=== PATIENT | male | born 1980 | race Caucasian/White ===

== ENCOUNTER 2017-09-07 00:19 | Emergency (ER) | payer BC ==
[2017-09-07 00:29] VITALS: BP 127/90; PULSE 128; O2SAT 97
[2017-09-07] MEDS ORDERED: Zithromax 250 MG TABLET PO ONE (00:36)
[2017-09-07] MEDS ORDERED: NORCO 5/325 MG PO ONE (00:37)
[2017-09-07] MEDS ORDERED: NORCO 5/325 MG ONE (00:39)
[2017-09-07] MEDS ORDERED: Zithromax 250 MG TABLET ONE (00:39)
--- NOTE | 2017-09-07 00:43 | ERPHSYRPT ---
- History of Present Illness Time Seen by Provider: 09/07/17 00:25 Source: patient Exam Limitations: no limitations Patient Subjective Stated Complaint: Fever Triage Nursing Assessment: Pt presents to the ED with complaints of fever that began approximately 40 minutes ago. Pt states he went to sleep feeling tired but denies other complaints. Pt states temp of 101.3 before leaving home. Pt states flu + 2 weeks ago. Physician History: FOR THE PAST 40 MINUTES PT HAS HAD FATIGUE, GENERALIZED ACHES AND FEVER UP TO 101.3 DEGREES; DENIES RASH, NAUSEA, VOMITING, ABDOMINAL PAIN; ADMITS TO AN ACHY CHEST WHEN TAKING DEEP BREATHS. Allergies/Adverse Reactions: No Known Drug Allergies Allergy (Verified 10/05/15 21:13) Hx Tetanus, Diphtheria Vaccination/Date Given: Yes Hx Influenza Vaccination/Date Given: Yes Hx Pneumococcal Vaccination/Date Given: No Immunizations Up to Date: Yes - Review of Systems Constitutional: Fever, Fatigue Musculoskeletal: Arthralgias All Other Systems: Reviewed and Negative - Past Medical History Pertinent Past Medical History: Yes Neurological History: No Pertinent History ENT History: No Pertinent History Cardiac History: No Pertinent History Respiratory History: No Pertinent History Endocrine Medical History: No Pertinent History Musculoskeletal History: Other GI Medical History: GI Bleed, Hemorrhoids History: No Pertinent History Psycho-Social History: No Pertinent History Male Reproductive Disorders: No Pertinent History Other Medical History: chronic right shoulder pain - Past Surgical History Past Surgical History: Yes Neuro Surgical History: No Pertinent History Cardiac: No Pertinent History Respiratory: No Pertinent History Gastrointestinal: No Pertinent History Genitourinary: No Pertinent History Musculoskeletal: Orthopedic Surgery Male Surgical History: No Pertinent History Other Surgical History: r shoulder x 2 and r knee - Social History Smoking Status: Current every day smoker How long have you smoked: 20 years Exposure to second hand smoke: Yes Drug Use: none Patient Lives Alone: No - Nursing Vital Signs Nursing Vital Signs: Initial Vital Signs Temperature 99.7 F 09/07/17 00:24 Pulse Rate 128 H 09/07/17 00:24 Respiratory Rate 16 09/07/17 00:24 Blood Pressure 127/90 09/07/17 00:24 O2 Sat by Pulse Oximetry 97 09/07/17 00:24 Pain Scale Pain Intensity 0 - Physical Exam General Appearance: alert Eye Exam: PERRL/EOMI Ears, Nose, Throat Exam: TMs normal, moist mucous membranes, pharyngeal erythema Neck Exam: normal inspection Respiratory Exam: lungs clear Cardiovascular Exam: normal heart sounds Gastrointestinal/Abdomen Exam: soft, other (B.S. MILDLY HYPERACTIVE AND NORMOTONIC) Back Exam: normal range of motion Extremity Exam: normal inspection, No pedal edema Neurologic Exam: alert, cooperative Skin Exam: warm, dry SpO2 Interpretation: normal SpO2: 97 Oxygen Delivery: Room Air - Course Nursing assessment & vital signs reviewed: Yes - Departure Time of Disposition: 00:47 Departure Disposition: Home Clinical Impression: PHARYNGITIS Condition: Stable Critical Care Time: No Referrals: MIKE QUARLES [Primary Care Provider] - Instructions: Fever, Adult (DC) Additional Instructions: FOLLOW UP WITH PRIVATE DOCTOR TOMORROW. Prescriptions: Naproxen [Naprosyn] 500 mg PO Q12H PRN PRN #20 tablet PRN Reason: Pain And/Or Fever Azithromycin 250 mg [Zithromax 250 MG TABLET] 250 mg PO ZPACK #6 tablet
== END 2017-09-07 00:57 | disposition home or self-care (01) ==
LOC: ED 00:19
DX: J02.9 Acute pharyngitis, unspecified (principal)
CPT/HCPCS: 99283; A9270-GY

== ENCOUNTER 2018-03-24 00:09 | Emergency (ER) | payer BC ==
--- NOTE | 2018-03-24 00:40 | ERPHSYRPT ---
- History of Present Illness Time Seen by Provider: 03/24/18 00:30 Historian: patient Exam Limitations: no limitations Physician History: 38 y/o male comes to the ER with complaints of acute onset left flank pain that started this evening after he coughed. Pt describes the pain as sharp, constant , 8/10, with radiation across the abdomen and pt has not taken any pain meds. Pt denies any fever, chills, nausea, vomiting, constipation, diarrhea or urinary symptoms. Timing/Duration: today Activities at Onset: activity, sleep Quality: sharpness Abdominal Pain Onset Location: flank Pain Radiation: periumbilical Severity of Pain-Max: severe Severity of Pain-Current: severe Modifying Factors: Improves With: coughing Associated Symptoms: denies symptoms Previous symptoms: no prior history Allergies/Adverse Reactions: No Known Drug Allergies Allergy (Verified 03/24/18 00:42) Hx Tetanus, Diphtheria Vaccination/Date Given: Yes Hx Influenza Vaccination/Date Given: Yes Hx Pneumococcal Vaccination/Date Given: No - Review of Systems Constitutional: No Fever, No Chills Eyes: No Symptoms Ears, Nose, & Throat: No Symptoms Respiratory: No Cough, No Dyspnea Cardiac: No Chest Pain, No Edema, No Syncope Abdominal/Gastrointestinal: Abdominal Pain, No Nausea, No Vomiting, No Diarrhea Genitourinary Symptoms: Flank Pain, No Dysuria, No Frequency, No Hematuria, No Hesitancy Musculoskeletal: No Back Pain, No Neck Pain Skin: No Rash Neurological: No Dizziness, No Focal Weakness, No Sensory Changes Psychological: No Symptoms Endocrine: No Symptoms All Other Systems: Reviewed and Negative - Past Medical History Pertinent Past Medical History: Yes Neurological History: No Pertinent History ENT History: No Pertinent History Cardiac History: No Pertinent History Respiratory History: No Pertinent History Endocrine Medical History: No Pertinent History Musculoskeletal History: Other GI Medical History: GI Bleed, Hemorrhoids History: No Pertinent History Psycho-Social History: No Pertinent History Male Reproductive Disorders: No Pertinent History Other Medical History: chronic right shoulder pain - Past Surgical History Past Surgical History: Yes Neuro Surgical History: No Pertinent History Cardiac: No Pertinent History Respiratory: No Pertinent History Gastrointestinal: No Pertinent History Genitourinary: No Pertinent History Musculoskeletal: Orthopedic Surgery Male Surgical History: No Pertinent History Other Surgical History: r shoulder x 2 and r knee - Social History Smoking Status: Current every day smoker How long have you smoked: 20 years Exposure to second hand smoke: Yes Drug Use: none Patient Lives Alone: No - Nursing Vital Signs Nursing Vital Signs: Initial Vital Signs Temperature 98.3 F 03/24/18 00:34 Pulse Rate 114 H 03/24/18 00:34 Respiratory Rate 18 03/24/18 00:34 Blood Pressure 145/98 03/24/18 00:34 O2 Sat by Pulse Oximetry 97 03/24/18 00:34 Pain Scale Pain Intensity 8 - Physical Exam General Appearance: mild distress, alert Eye Exam: PERRL/EOMI, eyes nml inspection Ears, Nose, Throat Exam: normal ENT inspection, pharynx normal, moist mucous membranes Neck Exam: normal inspection, non-tender, supple, full range of motion Respiratory Exam: normal breath sounds, lungs clear, No respiratory distress Cardiovascular Exam: regular rate/rhythm, normal heart sounds Gastrointestinal/Abdomen Exam: soft, No tenderness, No mass Back Exam: normal inspection, normal range of motion, CVA tenderness, No vertebral tenderness Extremity Exam: normal inspection, normal range of motion, pelvis stable Neurologic Exam: alert, oriented x 3, cooperative, normal mood/affect, nml cerebellar function, sensation nml, No motor deficits Skin Exam: normal color, warm, dry - Course Nursing assessment & vital signs reviewed: Yes Ordered Tests: Active Orders 24 hr Category Date Time Status IV Insertion STAT Care 03/24/18 00:37 Active NPO (ED) STAT Care 03/24/18 00:37 Active ABDOMEN AND PELVIS W/0 CONTRAS [CT] Stat Exams 03/24/18 00:37 Taken AMYLASE Stat Lab 03/24/18 00:37 Completed CBC W DIFF Stat Lab 03/24/18 00:37 Completed CMP Stat Lab 03/24/18 00:37 Completed LIPASE Stat Lab 03/24/18 00:37 Completed UA W/ MICROSCOPIC Stat Lab 03/24/18 00:37 Completed Medication Summary Discontinued Medications Generic Name Dose Route Start Last Admin Trade Name Freq PRN Reason Stop Dose Admin Sodium Chloride 1,000 mls @ 999 mls/hr 03/24/18 00:37 03/24/18 01:00 Sodium Chloride 0.9% 1000 Ml IV 03/24/18 01:37 999 mls/hr .Q1H1M STA Administration Sodium Chloride Confirm 03/24/18 00:58 Sodium Chloride 0.9% 1000 Ml Administered 03/24/18 00:59 Dose 1,000 mls @ ud .ROUTE .STK-MED ONE Ketorolac Tromethamine 30 mg 03/24/18 00:37 03/24/18 01:05 Toradol 30 Mg Injection IV 03/24/18 00:38 30 mg STAT ONE Administration Ketorolac Tromethamine Confirm 03/24/18 00:58 Toradol 30 Mg Injection Administered 03/24/18 00:59 Dose 30 mg .ROUTE .STK-MED ONE Lab/Rad Data: Laboratory Result Diagrams 03/24/18 00:37 03/24/18 00:37 Laboratory Results 03/24/18 03/24/18 03/24/18 Range/Units 00:37 00:37 00:37 WBC 14.8 H (4.0-10.5) K/mm3 RBC 5.44 (4.1-5.6) M/mm3 Hgb 16.4 (12.5-18.0) gm/dl Hct 46.7 (42-50) % MCV 85.8 (78-100) fl MCH 30.1 (26-32) pg MCHC 35.1 (32-36) g/dl RDW 13.6 (11.5-14.0) % Plt Count 344 (150-450) K/mm3 MPV 9.7 H (6-9.5) fl Gran % 65.1 (36.0-66.0) % Eos # (Auto) 0.19 (0-0.5) Absolute Lymphs (auto) 3.93 (1.0-4.6) Absolute Monos (auto) 1.01 (0.0-1.3) Lymphocytes % 26.6 (24.0-44.0) % Monocytes % 6.8 (0.0-12.0) % Eosinophils % 1.3 (0.00-5.0) % Basophils % 0.2 (0.0-0.4) % Absolute Granulocytes 9.63 H (1.4-6.9) Basophils # 0.03 (0-0.4) Sodium 140 (137-145) mmol/L Potassium 3.6 (3.5-5.1) mmol/L Chloride 103 (98-107) mmol/L Carbon Dioxide 25 (22-30) mmol/L Anion Gap 15.1 H (5-15) MEQ/L BUN 13 (9-20) mg/dL Creatinine 0.77 (0.66-1.25) mg/dL Estimated GFR > 60.0 ML/MIN Glucose 113 H (74-106) mg/dL Calcium 9.6 (8.4-10.2) mg/dL Total Bilirubin 0.30 (0.2-1.3) mg/dL AST 17 (17-59) U/L ALT 25 (0-50) U/L Alkaline Phosphatase 70 (38-126) U/L Serum Total Protein 8.1 (6.3-8.2) g/dL Albumin 4.8 (3.5-5.0) g/dL Amylase 53 (30-110) U/L Lipase 123 (23-300) U/L Ur Collection Type VOID Urine Color YELLOW (YELLOW) Urine Appearance CLEAR (CLEAR) Urine pH 5.0 (5-6) Ur Specific [place] 1.025 (1.005-1.025) Urine Protein NEGATIVE (Negative) Urine Ketones NEGATIVE (NEGATIVE) Urine Blood NEGATIVE (0-5) Joss/ul Urine Nitrite NEGATIVE (NEGATIVE) Urine Bilirubin NEGATIVE (NEGATIVE) Urine Urobilinogen NORMAL (0-1) mg/dL Ur Leukocyte Esterase TRACE (NEGATIVE) Urine Microscopic WBC 2-5 (0-5) /HPF Ur Epithelial Cells RARE (FEW) /HPF Urine Culture Reflexed NO (NO) Urine Glucose NEGATIVE (NEGATIVE) mg/dL Specimen Received [id number] - Progress Progress: improved Progress Note: 03/24/18 02:[address] scan abd/pelvis does not show any acute findings. The labs are unremarkable. The patient likely has a muscle pull and will be sent home on toradol. - Departure Time of Disposition: 02:57 Departure Disposition: Home Clinical Impression: Pulled muscle Condition: Stable Critical Care Time: No Referrals: MIKE QUARLES [Primary Care Provider] - Instructions: Flank Pain Additional Instructions: Return to the ER if you should continue to have muscle pain. Prescriptions: Ketorolac Tromethamine [Toradol] 10 mg PO QID PRN #20 tablet PRN Reason: Pain
[2018-03-24] MEDS ORDERED: Sodium Chloride 0.9% 1000 ML 1,000 ML ONE (00:58)
[2018-03-24] MEDS ORDERED: TORAdol 30 mg Injection ONE (00:58)
[2018-03-24] MEDS: Sodium Chloride 0.9% 1000 ML 1,000 ML IV STA (01:00)
[2018-03-24] MEDS: TORAdol 30 mg Injection IV ONE (01:05)
[2018-03-24 01:29] LABS: BASOPHIL % 0.2 % (0.0-0.4); Basophil (Absolute #) 0.03 (0-0.4); Eosinophil % 1.3 % (0.00-5.0); Eosinophil (Absolute #) 0.19 (0-0.5); Granulocyte Absolute (ANC) 9.63 (1.4-6.9); Granulocytes % 65.1 % (36.0-66.0); Hematocrit 46.7 % (42-50); Hemoglobin 16.4 gm/dl (12.5-18.0); Lymphocyte (Absolute #) 3.93 (1.0-4.6); Lymphocytes % 26.6 % (24.0-44.0); Mean Cell Volume 85.8 fl (78-100); Mean Corpuscular Hemoglobin 30.1 pg (26-32); Mean Corpuscular Hgb Concent. 35.1 g/dl (32-36); Mean Platelet Volume 9.7 fl (6-9.5); Monocyte (Absolute #) 1.01 (0.0-1.3); Monocytes % 6.8 % (0.0-12.0); Platelet Count 344 K/mm3 (150-450); Red Blood Count 5.44 M/mm3 (4.1-5.6); Red Cell Distribution Width 13.6 % (11.5-14.0); White Blood Count 14.8 K/mm3 (4.0-10.5)
[2018-03-24 01:41] LABS: Appearance CLEAR (CLEAR); Bilirubin NEGATIVE (NEGATIVE); Blood NEGATIVE Ery/ul (0-5); Glucose NEGATIVE (NEGATIVE); Ketones NEGATIVE (NEGATIVE); Leukocyte Esterase TRACE (NEGATIVE); Nitrite NEGATIVE (NEGATIVE); Protein,Urine Dip NEGATIVE (Negative); Specific Gravity 1.025 (1.005-1.025); Urobilinogen NORMAL mg/dL (0-1)
[2018-03-24 01:42] LABS: Epithelial Cells RARE /HPF (FEW)
[2018-03-24 01:49] LABS: ALBUMIN 4.8 g/dL (3.5-5.0); ALKALINE PHOSPHATASE 70 U/L (38-126); AMYLASE 53 U/L (30-110); ANION GAP 15.1 MEQ/L (5-15); BLOOD UREA NITROGEN 13 mg/dL (9-20); CHLORIDE 103 mmol/L (98-107); Calcium 9.6 mg/dL (8.4-10.2); Carbon Dioxide 25 mmol/L (22-30); Creatinine 1 0.77 mg/dL (0.66-1.25); Glucose 113 mg/dL (74-106); LIPASE 123 U/L (23-300); Potassium 3.6 mmol/L (3.5-5.1); SGOT/AST 17 U/L (17-59); SGPT/ALT 25 U/L (0-50); SODIUM 140 mmol/L (137-145); Total Protein 8.1 g/dL (6.3-8.2)
[2018-03-24 02:51] VITALS: PULSE 84
[2018-03-24 03:14] VITALS: BP 123/73; O2SAT 97
--- NOTE | 2018-03-24 08:52 | XRAY ---
Indication: Left flank pain. Multiple contiguous axial images obtained through the abdomen and pelvis without contrast as ordered. Comparison: October 22, 2013. Lung bases are clear. Heart is not enlarged. Noncontrasted stomach and bowel loops appear nonobstructed. Normal appendix. No free fluid/air. Mild diffuse fatty liver. Remaining liver, gallbladder, pancreas, spleen, adrenal glands, kidneys, ureters, bladder, and aorta appear unremarkable for noncontrast exam. Osseous structures intact with mild L5-S1 degenerative disc disease and bilateral L5 spondylolysis without spondylolisthesis. No ventral or inguinal hernias. Impression: 1. No acute intra-abdominal/pelvic abnormalities on this noncontrast exam. 2. Incidental fatty liver, L5-S1 degenerative disc disease, and L5 spondylolysis without spondylolisthesis. Comment: Preliminary interpretation was made by [facility]. No critical discrepancy. CT DI 23.49
== END 2018-03-24 03:10 | disposition home or self-care (01) ==
LOC: ED 00:09
DX: S39.011A Strain of muscle, fascia and tendon of abdomen, initial encounter (principal); R10.33 Periumbilical pain; R05 Cough; Z72.0 Tobacco use
CPT/HCPCS: 36000; 36415; 74176; 80053; 81000; 82150; 83690; 85025; 96360; 96374; 99284; J1885

== ENCOUNTER 2018-06-21 05:35 | Day surgery (SDC) | payer BC ==
[2018-06-21] MEDS ORDERED: DIPRIVAN 200 MG/20 ML IV ONE (05:36)
[2018-06-21] MEDS ORDERED: Lactated Ringers 1,000 ML IV SCH (06:00)
--- NOTE | 2018-06-21 08:50 | OP ---
SURGERY DATE/TIME: 06/21/2018 0758 PREOPERATIVE DIAGNOSIS: Rectal bleeding. POSTOPERATIVE DIAGNOSES: 1) External hemorrhoids. 2) Polyp in the transverse colon. PROCEDURE: Colonoscopy with polypectomy. SURGEON: Dr. Borges. ANESTHESIA: MAC. Medications given by anesthesia department. HISTORY: The patient is a 38 year-old white male patient presenting now for rectal bleeding. The patient was felt to need to have endoscopic evaluation. He was appraised of the risks of the procedure including the risk of perforation, phlebitis, untoward reaction to medication, bleeding and missed lesions. The patient verbalized his understanding and desired to have the procedure performed. DESCRIPTION OF PROCEDURE: The patient was given the medications by the anesthesia department. He had continuous pulse oximetry, ECG monitoring, intermittent blood pressure monitoring and tidal CO2 monitoring during the examination. He was placed in the left lateral decubitus position. A digital rectal examination was performed and revealed external hemorrhoids with no bleeding, no fissure, no masses, normal anal sphincter tone and normal prostate. The flexible Olympus pediatric colonoscope was used to intubate the rectum. A view of the colon was developed sequentially to the cecum including a short distance into the terminal ileum. Upon insertion and withdrawal, including a retroflex view in the rectum was noted benign appearing polyp measuring approximately 2 x 1 cm sessile in the transverse colon at a flexure this was destroyed using multiple passes with cold biopsy forceps. Upon insertion and withdrawal including retroflex view in the rectum no other mucosal lesions were encountered. The scope was removed from the patient who tolerated the procedure well and was sent back to OP recovery in good condition. The prep was noted to be fair to good.
[2018-06-21 09:19] VITALS: BP 125/74; PULSE 78; O2SAT 97
== END 2018-06-21 09:15 | disposition home or self-care (01) ==
LOC: SDC 05:35
PROVIDERS: ATTEND Family Medicine
DX: K62.5 Hemorrhage of anus and rectum (principal); K64.4 Residual hemorrhoidal skin tags; K63.5 Polyp of colon
CPT/HCPCS: 88305; 94250; J2704

== ENCOUNTER 2019-07-08 03:37 | Emergency (ER) | payer BC ==
[2019-07-08] MEDS ORDERED: TYLENOL EXTRA STRENGTH 500 MG PO STA (04:06)
[2019-07-08] MEDS ORDERED: MOTRIN 600 MG PO ONE (04:07)
--- NOTE | 2019-07-08 04:16 | ERPHSYRPT ---
- History of Present Illness Time Seen by Provider: 07/08/19 03:55 Source: patient Exam Limitations: no limitations Patient Subjective Stated Complaint: pt states he has had aches and chills at home and some congestion Triage Nursing Assessment: pt alert and oriented, answers questions approp. pt amulatory with steady gait noted. respirations nonlabored with lungs cta. Physician History: Patient had sudden onset of fever, chills, myalgias and congestion in the evening of 07/07/2019. Timing/Duration: hour(s) Fever Severity: severe Fever Therapy ATTIC BLOWER: none Associated Symptoms: cough, muscle aches, rhinorrhea, No abdominal pain, No chest pain, No confusion, No diaphoresis, No headache, No nausea/vomiting, No rash, No shortness of breath, No sore throat, No stiff neck, No syncope, No weakness International travel in last 2 weeks: No Allergies/Adverse Reactions: oseltamivir [From Tamiflu] Adverse Reaction (Verified 07/08/19 04:13) Vomiting Home Medications: Atorvastatin Calcium 10 mg PO 07/08/19 [History] Tizanidine HCl 4 mg [Zanaflex 4 MG] 4 mg PO Q8H PRN PRN 07/08/19 [History] Hx Tetanus, Diphtheria Vaccination/Date Given: Yes Hx Influenza Vaccination/Date Given: No Hx Pneumococcal Vaccination/Date Given: No Immunizations Up to Date: Yes - Review of Systems Constitutional: Fever, Chills, Fatigue Eyes: No Eye Pain, No Vision Changes Ears, Nose, & Throat: Nose Congestion, Nose Discharge, No Throat Pain, No Throat Swelling, No Painful Swallowing Respiratory: Cough, No Dyspnea Cardiac: No Chest Pain, No Edema, No Syncope Abdominal/Gastrointestinal: No Abdominal Pain, No Nausea, No Vomiting, No Diarrhea, No Hematemesis, No Hematochezia, No Melena Genitourinary Symptoms: No Dysuria, No Hematuria, No Flank Pain Musculoskeletal: Myalgias, No Back Pain, No Neck Pain, No Joint Pain Skin: No Rash Neurological: No Dizziness, No Focal Weakness, No Headache, No Parasthesia, No Sensory Changes Psychological: No Anxiety Endocrine: No Excessive Sweating Hematologic/Lymphatic: No Easy Bleeding, No Easy Bruising All Other Systems: Reviewed and Negative - Past Medical History Pertinent Past Medical History: Yes Neurological History: No Pertinent History ENT History: No Pertinent History Cardiac History: No Pertinent History Respiratory History: No Pertinent History Endocrine Medical History: No Pertinent History Musculoskeletal History: Other GI Medical History: GI Bleed, Hemorrhoids History: No Pertinent History Psycho-Social History: No Pertinent History Male Reproductive Disorders: No Pertinent History Other Medical History: chronic right shoulder pain - Past Surgical History Past Surgical History: Yes Neuro Surgical History: No Pertinent History Cardiac: No Pertinent History Respiratory: No Pertinent History Gastrointestinal: No Pertinent History Genitourinary: No Pertinent History Musculoskeletal: Orthopedic Surgery Male Surgical History: No Pertinent History Other Surgical History: r shoulder x 2 and r knee - Social History Smoking Status: Current every day smoker How long have you smoked: 20 years Exposure to second hand smoke: Yes Drug Use: none Patient Lives Alone: No - Nursing Vital Signs Nursing Vital Signs: Initial Vital Signs Temperature 103.0 F 07/08/19 03:59 Pulse Rate 110 H 07/08/19 03:59 Respiratory Rate 18 07/08/19 03:59 Blood Pressure 112/70 07/08/19 03:59 O2 Sat by Pulse Oximetry 96 07/08/19 03:59 Pain Scale Pain Intensity 5 - Physical Exam General Appearance: no apparent distress, alert Eye Exam: PERRL/EOMI, eyes nml inspection, No scleral icterus, No pale conjunctivae ENT Exam: normal ENT inspection, no apparent trauma, hearing grossly normal, nasal congestion, No pharyngeal erythema, No tonsillar exudate, No trismus, No muffled/hoarse voice Neck Exam: normal inspection, non-tender, supple, full range of motion, trachea midline, No lymphadenopathy (R), No lymphadenopathy (L), No tender lateral, No Brudzinski's sign, No meningismus Respiratory Exam: normal breath sounds, lungs clear, no respiratory distress, No decreased breath sounds, No respiratory distress, No decreased air movement, No accessory muscle use, No crackles/rales, No rhonchi, No stridor, No wheezing Cardiovascular/Chest Exam: normal heart sounds, regular rate/rhythm, normal peripheral pulses, No murmur, No edema Gastrointestinal/Abdominal Exam: soft, non tender, no distention Extremity Exam: non-tender, normal range of motion, normal inspection, normal capillary refill, pelvis stable, No pedal edema, No swelling Neurologic Exam: alert, oriented x 3, cooperative, fuel technician II-XII nml as tested, normal mood/affect, sensation nml, No motor deficits Skin Exam: normal color, warm, dry, No rash, No jaundice, No cyanosis SpO2 Interpretation: normal SpO2: 96 O2 Delivery: Room Air - Course Nursing assessment & vital signs reviewed: Yes Ordered Tests: Medication Summary Discontinued Medications Generic Name Dose Route Start Last Admin Trade Name Lexi PRN Reason Stop Dose Admin Acetaminophen 1,000 mg 07/08/19 04:06 07/08/19 04:27 Tylenol Extra Strength 500 Mg PO 07/08/19 04:07 1,000 mg STAT STA Administration Acetaminophen Confirm 07/08/19 04:25 Tylenol 325 Mg Administered 07/08/19 04:26 Dose 650 mg .ROUTE .STK-MED ONE Acetaminophen Confirm 07/08/19 04:27 Tylenol Extra Strength 500 Mg Administered 07/08/19 04:28 Dose 1,000 mg .ROUTE .STK-MED ONE Ibuprofen 600 mg 07/08/19 04:07 07/08/19 04:26 Motrin 600 Mg PO 07/08/19 04:08 600 mg STAT ONE Administration Ibuprofen Confirm 07/08/19 04:24 Motrin 600 Mg Administered 07/08/19 04:25 Dose 600 mg .ROUTE .STK-MED ONE Lab/Rad Data: Laboratory Results 07/08/19 Range/Units 05:00 Influenza Type A Ag POSITIVE (NEGATIVE) Influenza Type B Ag NEGATIVE (NEGATIVE) RSV (PCR) NEGATIVE (Negative) - Progress Progress: improved Progress Note: 07/08/19 06:00 temperature and pulse have significantly improved after medication. Patient does not require inpatient treatment at this time and can be treated as an outpatient since he has no respiratory distress, does not require any oxygen support and can take oral intake. Counseled pt/family regarding: lab results, diagnosis, need for follow-up - Departure Departure Disposition: Home Clinical Impression: Influenza A Condition: Good Critical Care Time: No Referrals: MIKE QUARLES [Primary Care Provider] - Follow Up with PCP/3 days Instructions: Flu, Adult (DC), Fever, Adult (DC) Additional Instructions: You have Influenza A, which is very contagious. Avoid any very young children, elderly people, people with heart and lung problems or any immunocompromised people for the next week. Return immediately back into the emergency department if any change in mental status, shortness of breath, productive cough , poor intake, any new skin rashes or any other concerning signs or symptoms that were not present at the emergency room visit for immediate reevaluation in the emergency department. Forms: Work/School Release Form Prescriptions: Ibuprofen 800 mg PO Q6H PRN PRN #30 tablet PRN Reason: Fever Baloxavir Marboxil [Xofluza] 80 mg PO DAILY #2 tablet Promethazine/Dextromethorphan [Promethazine-Dm Solution] 5 ml PO Q6-8HPRN PRN # 90 ml PRN Reason: Cough
[2019-07-08] MEDS ORDERED: MOTRIN 600 MG ONE (04:24)
[2019-07-08] MEDS ORDERED: TYLENOL 325 MG ONE (04:25)
[2019-07-08] MEDS ORDERED: TYLENOL EXTRA STRENGTH 500 MG ONE (04:27)
[2019-07-08 05:46] LABS: INFLUENZA A POSITIVE (NEGATIVE); INFLUENZA B NEGATIVE (NEGATIVE); RESPIRATORY SYNCTIAL VIRUS NEGATIVE (Negative)
[2019-07-08 06:01] VITALS: BP 102/70; PULSE 104
[2019-07-08 06:03] VITALS: O2SAT 96
== END 2019-07-08 06:14 | disposition home or self-care (01) ==
LOC: ED 03:37
DX: J11.1 Influenza due to unidentified influenza virus with other respiratory manifestations (principal)
CPT/HCPCS: 87631; 99283; A9270-GY

== ENCOUNTER 2020-03-12 05:50 | Day surgery (SDC) | payer BC ==
[2020-03-12] MEDS ORDERED: Lactated Ringers 1,000 ML IV SCH (06:30)
[2020-03-12] MEDS ORDERED: DIPRIVAN 200 MG/20 ML IV ONE ×2 (07:36→07:49)
[2020-03-12 08:44] VITALS: O2SAT 95
[2020-03-12 08:57] VITALS: BP 115/77; PULSE 79
--- NOTE | 2020-03-12 13:00 | OP ---
SURGERY DATE/TIME: 03/12/2020 0735 PREOPERATIVE DIAGNOSES: 1) History of colon polyps. 2) History of rectal bleeding. POSTOPERATIVE DIAGNOSIS: Normal colon. PROCEDURE: Colonoscopy. SURGEON: Dr. Borges. ANESTHESIA: MAC. Medications given by anesthesia department. HISTORY: The patient is a 40 year old white male patient who reports that he has been having problems with intermittent rectal bleeding. He also reports history of having colon polyps removed previously. The patient was felt the need to have endoscopic evaluation. He was appraised of the risks of the procedure including the risk of perforation, phlebitis, untoward reaction to medication, bleeding and missed lesions. The patient verbalized his understanding and desired to have the procedure performed. DESCRIPTION OF PROCEDURE: The patient was given the medications by the anesthesia department. He had continuous pulse oximetry, ECG monitoring, intermittent blood pressure monitoring and tidal CO2 monitoring during the examination. He was placed in the left lateral decubitus position. A digital rectal examination was performed and revealed normal anal sphincter tone, no masses and normal prostate. The flexible Olympus pediatric colonoscope was used to intubate the rectum. A view of the colon was developed sequentially to the cecum including a short distance into the terminal ileum. Upon insertion and withdrawal, including a retroflex view in the rectum, no mucosal lesions were encountered. The scope was removed from the patient who tolerated the procedure well and was sent back to OP recovery in good condition. The prep was noted to be fair to good with slight amount of liquid stool throughout the colon.
== END 2020-03-12 08:58 | disposition home or self-care (01) ==
LOC: SDC 05:50
PROVIDERS: ATTEND Family Medicine
DX: Z09 Encounter for follow-up examination after completed treatment for conditions other than malignant neoplasm (principal); I10 Essential (primary) hypertension; Z79.899 Other long term (current) drug therapy
CPT/HCPCS: J2704

== ENCOUNTER 2020-11-21 21:41 | Observation (INO) | payer BC ==
[2020-11-21 22:33] LABS: Absolute Neutrophil Ct (ANC) 8.87 (1.4-6.9); BASOPHIL % 0.2 % (0.0-0.4); Basophil (Absolute #) 0.02 (0-0.4); Eosinophil % 1.4 % (0.00-5.0); Eosinophil (Absolute #) 0.17 (0-0.5); Hematocrit 45.9 % (42-50); Hemoglobin 15.3 gm/dl (12.5-18.0); Lymphocyte (Absolute #) 2.77 (1.0-4.6); Mean Cell Volume 88.4 fl (78-100); Mean Corpuscular Hemoglobin 29.5 pg (26-32); Mean Corpuscular Hgb Concent. 33.3 g/dl (32-36); Monocyte (Absolute #) 0.74 (0.0-1.3); Monocytes % 5.9 % (0.0-12.0); Neutrophil % 70.5 % (36.0-66.0); Platelet Count 287 K/mm3 (150-450); Red Blood Count 5.19 M/mm3 (4.1-5.6); Red Cell Distribution Width 13.9 % (11.5-14.0); White Blood Count 12.6 K/mm3 (4.0-10.5)
[2020-11-21 22:38] LABS: INR 0.97 (0.8-3.0)
[2020-11-21 22:40] LABS: PTT 31.9 SECONDS (24.1-36.1)
[2020-11-21 22:43] LABS: ALBUMIN 4.5 g/dL (3.5-5.0); ALKALINE PHOSPHATASE 75 U/L (38-126); ANION GAP 12.1 MEQ/L (5-15); BLOOD UREA NITROGEN 15 mg/dL (9-20); CHLORIDE 100 mmol/L (98-107); Calcium 9.6 mg/dL (8.4-10.2); Carbon Dioxide 29 mmol/L (22-30); Creatinine 1 0.84 mg/dL (0.66-1.25); EST GLOMERULAR FILTRATION RATE > 60.0 ML/MIN; Glucose 106 mg/dL (74-106); Potassium 3.9 mmol/L (3.5-5.1); SGOT/AST 17 U/L (17-59); SGPT/ALT 21 U/L (0-50); SODIUM 137 mmol/L (137-145); Total Protein 7.4 g/dL (6.3-8.2)
--- NOTE | 2020-11-21 22:44 | ERPHSYRPT ---
- History of Present Illness Time Seen by Provider: 11/21/20 21:57 Source: patient Exam Limitations: no limitations Patient Subjective Stated Complaint: pt states while watching tv he began to have spinning vison in his rt eye. states it stopped while he was on his way her e. denies any trauma to eye or head. denies headdache. Triage Nursing Assessment: pt alert and oriented, answers questions approp. pt ambulatoryw ith steady gait noted. respirations nonlabored with lungs cta. skin warm and dry. pupils equal and reactive, bilat upper and lower ext strength equal and wnl. Physician History: 40 years old generally healthy male presented in the ER with chief complaint of visual disturbance in the right eye sudden onset almost half an hour prior to arrival while he was watching TV. Patient report upper in the lateral aspect of the eye he was having some spinning/waving without any associated eye pain or headache. Denies any recent eye injury or trauma. It improved on the way to the ER and currently back to his baseline. Timing/Duration: today, sudden, improved Severity: moderate Character of Deficits: other (visual disturbance ) Deficits: no difficulties Baseline/Normal Cognition: alert oriented x 3 Current Cognition: alert oriented x 3 Baseline Gait: walks w/o assistance Associated Symptoms: denies symptoms Allergies/Adverse Reactions: oseltamivir [From Tamiflu] Adverse Reaction (Verified 11/22/20 00:00) Vomiting Home Medications: Atorvastatin Calcium [Lipitor 20MG Tablet] 20 mg PO HS 03/06/20 [History] Fluticasone Propionate [Flonase NASAL] 16 gm NS DAILY PRN PRN 03/06/20 [History] Loratadine 10 mg [Claritin 10 mg] 10 mg PO HS 03/06/20 [History] Zolpidem Tartrate 10 mg [Ambien 10 MG] 10 mg PO HSPRN PRN 03/06/20 [History] Varenicline Tartrate [Chantix] 1 mg PO BID 11/21/20 [History] Hx Tetanus, Diphtheria Vaccination/Date Given: Yes Hx Influenza Vaccination/Date Given: No Hx Pneumococcal Vaccination/Date Given: No Immunizations Up to Date: Yes Travel Risk - International Travel Have you traveled outside of the country in past 3 weeks: No - Coronavirus Screening Are you exhibiting any of the following symptoms?: No Close contact with a COVID-19 positive Pt in past 14-21 Days: No - Vaccine Status Have you recieved a Covid-19 vaccination: Yes 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 - Vaccination Dates Date of 2cond Vaccination (if applicable): sep 21 - Review of Systems Constitutional: No Symptoms Eyes: Vision Changes, No Eye Pain, No Eye Redness, No Itchy Ears, Nose, & Throat: No Symptoms Respiratory: No Symptoms Cardiac: No Symptoms Abdominal/Gastrointestinal: No Symptoms Genitourinary Symptoms: No Symptoms Musculoskeletal: No Symptoms Skin: No Symptoms Neurological: No Symptoms Psychological: No Symptoms Endocrine: No Symptoms Hematologic/Lymphatic: No Symptoms Immunological/Allergic: No Symptoms - Past Medical History Pertinent Past Medical History: Yes Neurological History: No Pertinent History ENT History: No Pertinent History Cardiac History: High Cholesterol Respiratory History: Sleep Apnea Endocrine Medical History: No Pertinent History Musculoskeletal History: Other GI Medical History: GI Bleed, Hemorrhoids History: No Pertinent History Psycho-Social History: No Pertinent History Male Reproductive Disorders: No Pertinent History Other Medical History: chronic right shoulder pain. shortness of breath with excessive work. 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 had bone scraped after "a pc of steel got in it" - Social History Smoking Status: Current every day smoker How long have you smoked: 29 years Exposure to second hand smoke: Yes Drug Use: none Patient Lives Alone: No - Nursing Vital Signs Nursing Vital Signs: Initial Vital Signs Temperature 98.6 F 11/21/20 21:49 Pulse Rate 87 11/21/20 21:49 Respiratory Rate 18 11/21/20 21:49 Blood Pressure 138/99 11/21/20 21:49 O2 Sat by Pulse Oximetry 100 11/21/20 21:49 Pain Scale Pain Intensity 0 - [place] Coma Scale Best Eye Response ([place]): (4) open spontaneously Best Verbal Response ([place]): (5) oriented Best Motor Response ([place]): (6) obeys commands [place] Total: 15 - Physical Exam General Appearance: no apparent distress, alert Eye Exam: bilateral eye: normal inspection, PERRL, EOMI Ears, Nose, Throat Exam: normal ENT inspection, TMs normal, pharynx normal Neck Exam: normal inspection, non-tender, supple, full range of motion Respiratory: normal breath sounds, lungs clear Cardiovascular: regular rate/rhythm, normal heart sounds Gastrointestinal: soft Back Exam: normal inspection, normal range of motion Extremity Exam: normal inspection, normal range of motion Mental Status: alert, oriented x 3, 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 Exam: normal hearing, normal speech, PERRL, No abnormal eye position Coordination/Gait: normal finger to nose, normal gait, normal cerebellar function, negative Romberg's sign Motor/Sensory: no motor deficit, no sensory deficit, no pronator drift, negative Babinski's sign Skin Exam: normal color SpO2 Interpretation: normal SpO2: 100 O2 Delivery: Room Air - Course EKG Interpreted by Me: RATE (78), Sinus Rhythm, NORMAL AXIS, NORMAL INTERVALS, NORMAL QRS Ordered Tests: Medication Summary Discontinued Medications Generic Name Dose Route Start Last Admin Trade Name Freq PRN Reason Stop Dose Admin Acetaminophen 650 mg 11/22/20 02:32 Tylenol 325 Mg PO 12/22/20 02:31 Q4H PRN PRN PAIN AND/OR FEVER Aspirin 324 mg 11/22/20 00:46 11/22/20 00:56 Baby Aspirin 81 Mg Chew PO 11/22/20 00:47 324 mg STAT ONE Administration Aspirin Confirm 11/22/20 00:57 Baby Aspirin 81 Mg Chew Administered 11/22/20 00:58 Dose 324 mg .ROUTE .STK-MED ONE Clopidogrel Bisulfate 75 mg 11/22/20 00:46 11/22/20 00:57 Plavix 75 Mg Tablet PO 11/22/20 00:47 75 mg STAT ONE Administration Clopidogrel Bisulfate Confirm 11/22/20 00:57 Plavix 75 Mg Tablet Administered 11/22/20 00:58 Dose 75 mg .ROUTE .STK-MED ONE Famotidine 20 mg 11/22/20 10:00 11/22/20 12:46 Pepcid 20 Mg Vial IV 12/22/20 09:59 Not Given Q12HT CORY Fluticasone Propionate 0 gm 11/22/20 09:28 Flonase Nasal NS 12/22/20 09:27 DAILY PRN PRN ALLERGIES Loratadine 10 mg 11/22/20 22:00 Claritin 10 Mg PO 12/22/20 21:59 HS [facility] Miscellaneous Information 1 each 11/22/20 09:45 Medication Intervention 12/22/20 09:44 .RN TO CHECK WITH PT [facility] Ondansetron HCl 4 mg 11/22/20 02:32 Zofran 4 Mg/2 Ml Vial IV 12/22/20 02:31 Q6H PRN PRN NAUSEA/VOMITING Simvastatin 20 mg 11/22/20 22:00 Zocor 20mg PO 12/22/20 21:59 HS [facility] Zolpidem Tartrate 10 mg 11/22/20 09:28 Ambien 10 Mg PO 12/22/20 09:27 HSPRN PRN INSOMNIA Lab/Rad Data: Laboratory Result [facility] 11/21/20 22:25 11/21/20 22:25 Laboratory Results 11/22/20 11/21/20 11/21/20 Range/Units 01:15 22:25 22:25 WBC (4.0-10.5) K/mm3 RBC (4.1-5.6) M/mm3 Hgb (12.5-18.0) gm/dl Hct (42-50) % MCV (78-100) fl MCH (26-32) pg MCHC (32-36) g/dl RDW (11.5-14.0) % Plt Count (150-450) K/mm3 MPV (7.5-11.0) fl Gran % (36.0-66.0) % Eos # (Auto) (0-0.5) Absolute Lymphs (auto) (1.0-4.6) Absolute Monos (auto) (0.0-1.3) Lymphocytes % (24.0-44.0) % Monocytes % (0.0-12.0) % Eosinophils % (0.00-5.0) % Basophils % (0.0-0.4) % Absolute Granulocytes (1.4-6.9) Basophils # (0-0.4) PT 11.0 (8.83-12.87) SECONDS INR 0.97 (0.8-3.0) APTT 31.9 (24.1-36.1) SECONDS Sodium 137 (137-145) mmol/L Potassium 3.9 (3.5-5.1) mmol/L Chloride 100 (98-107) mmol/L Carbon Dioxide 29 (22-30) mmol/L Anion Gap 12.1 (5-15) MEQ/L BUN 15 (9-20) mg/dL Creatinine 0.84 (0.66-1.25) mg/dL Estimated GFR > 60.0 ML/MIN Glucose 106 (74-106) mg/dL Calcium 9.6 (8.4-10.2) mg/dL Total Bilirubin 0.20 (0.2-1.3) mg/dL AST 17 (17-59) U/L ALT 21 (0-50) U/L Alkaline Phosphatase 75 (38-126) U/L Serum Total Protein 7.4 (6.3-8.2) g/dL Albumin 4.5 (3.5-5.0) g/dL Influenza Type A Ag NEGATIVE (NEGATIVE) Influenza Type B Ag NEGATIVE (NEGATIVE) RSV (PCR) NEGATIVE (Negative) SARS-CoV-2 (PCR) NEGATIVE (NEGATIVE) 11/21/20 Range/Units 22:25 WBC 12.6 H (4.0-10.5) K/mm3 RBC 5.19 (4.1-5.6) M/mm3 Hgb 15.3 (12.5-18.0) gm/dl Hct 45.9 (42-50) % MCV 88.4 (78-100) fl MCH 29.5 (26-32) pg MCHC 33.3 (32-36) g/dl RDW 13.9 (11.5-14.0) % Plt Count 287 (150-450) K/mm3 MPV 9.0 (7.5-11.0) fl Gran % 70.5 H (36.0-66.0) % Eos # (Auto) 0.17 (0-0.5) Absolute Lymphs (auto) 2.77 (1.0-4.6) Absolute Monos (auto) 0.74 (0.0-1.3) Lymphocytes % 22.0 L (24.0-44.0) % Monocytes % 5.9 (0.0-12.0) % Eosinophils % 1.4 (0.00-5.0) % Basophils % 0.2 (0.0-0.4) % Absolute Granulocytes 8.87 H (1.4-6.9) Basophils # 0.02 (0-0.4) PT (8.83-12.87) SECONDS INR (0.8-3.0) APTT (24.1-36.1) SECONDS Sodium (137-145) mmol/L Potassium (3.5-5.1) mmol/L Chloride (98-107) mmol/L Carbon Dioxide (22-30) mmol/L Anion Gap (5-15) MEQ/L BUN (9-20) mg/dL Creatinine (0.66-1.25) mg/dL Estimated GFR ML/MIN Glucose (74-106) mg/dL Calcium (8.4-10.2) mg/dL Total Bilirubin (0.2-1.3) mg/dL AST (17-59) U/L ALT (0-50) U/L Alkaline Phosphatase (38-126) U/L Serum Total Protein (6.3-8.2) g/dL Albumin (3.5-5.0) g/dL Influenza Type A Ag (NEGATIVE) Influenza Type B Ag (NEGATIVE) RSV (PCR) (Negative) SARS-CoV-2 (PCR) (NEGATIVE) - Progress Progress: improved, re-examined Progress Note: 11/22/20 00:43 Patient's visual disturbance/swirling feeling is improved on presentation in the ER. Nonfocal neuro exam otherwise. I have obtained CT head without contrast and CTA head neck which are negative. Work-up is grossly negative. Obtained ne uro consult who thinks patient probably have optical migraine aura but could be TIA and recommended TIA work-up. Discussed with Dr. Anderson and patient is being admitted for TIA work-up like MRI, echo with bubble study, lipid panel, A1c along with full dose aspirin and Plavix 75 mg now etc. 11/22/20 00:48 Discussed with : Lai Will see patient in: hospital (observation) Counseled pt/family regarding: lab results, diagnosis, rad results - Departure Departure Disposition: Observation Clinical Impression: Visual disturbance Condition: Stable Critical Care Time: No
[2020-11-22] MEDS ORDERED: BABY ASPIRIN 81 MG CHEW PO ONE (00:46)
[2020-11-22] MEDS ORDERED: PLAVIX 75 MG Tablet PO ONE (00:46)
[2020-11-22] MEDS ORDERED: BABY ASPIRIN 81 MG CHEW ONE (00:57)
[2020-11-22] MEDS ORDERED: PLAVIX 75 MG Tablet ONE (00:57)
[2020-11-22 02:01] LABS: INFLUENZA A NEGATIVE (NEGATIVE); INFLUENZA B NEGATIVE (NEGATIVE); RESPIRATORY SYNCTIAL VIRUS NEGATIVE (Negative)
[2020-11-22] MEDS ORDERED: TYLENOL 325 MG PO PRN (02:32)
[2020-11-22] MEDS ORDERED: Zofran 4 MG/2 ML VIAL IV PRN (02:32)
[2020-11-22 05:51] LABS: Absolute Neutrophil Ct (ANC) 8.14 (1.4-6.9); BASOPHIL % 0.2 % (0.0-0.4); Basophil (Absolute #) 0.03 (0-0.4); Eosinophil % 1.8 % (0.00-5.0); Eosinophil (Absolute #) 0.22 (0-0.5); Hematocrit 46.8 % (42-50); Hemoglobin 15.5 gm/dl (12.5-18.0); Lymphocyte (Absolute #) 3.16 (1.0-4.6); Lymphocytes % 25.8 % (24.0-44.0); Mean Cell Volume 88.6 fl (78-100); Mean Corpuscular Hemoglobin 29.4 pg (26-32); Mean Corpuscular Hgb Concent. 33.1 g/dl (32-36); Mean Platelet Volume 9.3 fl (7.5-11.0); Monocyte (Absolute #) 0.72 (0.0-1.3); Monocytes % 5.9 % (0.0-12.0); Neutrophil % 66.3 % (36.0-66.0); Platelet Count 294 K/mm3 (150-450); Red Blood Count 5.28 M/mm3 (4.1-5.6); White Blood Count 12.3 K/mm3 (4.0-10.5)
[2020-11-22 06:15] LABS: ALBUMIN 4.3 g/dL (3.5-5.0); ALKALINE PHOSPHATASE 78 U/L (38-126); BLOOD UREA NITROGEN 13 mg/dL (9-20); CHLORIDE 104 mmol/L (98-107); Calcium 9.3 mg/dL (8.4-10.2); Carbon Dioxide 25 mmol/L (22-30); Creatinine 1 0.75 mg/dL (0.66-1.25); EST GLOMERULAR FILTRATION RATE > 60.0 ML/MIN; Glucose 94 mg/dL (74-106); SGOT/AST 17 U/L (17-59); SGPT/ALT 19 U/L (0-50); SODIUM 138 mmol/L (137-145); Total Protein 7.3 g/dL (6.3-8.2)
[2020-11-22 06:24] LABS: Risk Ratio 4.2
--- NOTE | 2020-11-22 08:38 | XRAY ---
Indication: Right visual disturbance. Conventional contrast enhanced CTA neck performed using 80 cc Isovue 370 contrast. Two-dimensional sagittal and coronal reformatted images obtained. Additional 3-dimensional reformatted images obtained using a separate workstation. Comparison: None Aortic arch normal in course and caliber with normal branching right brachiocephalic, left common carotid, and left subclavian arteries. Normal CTA appearance to the common carotid, carotid bulb, internal carotid, external carotid, and vertebral arteries bilaterally. CTA head report separately. Visualized soft tissues demonstrates scattered centimeter/subcentimeter cervical and submandibular lymph nodes bilaterally. No pathologic lymphadenopathy. Parotid and submandibular glands are bilaterally symmetric. Supra and infraglottic airway widely patent. Normal epiglottis. Osseous structures intact. Lung apices demonstrates bilateral dependent atelectasis. Impression: Normal CTA neck. Comment: Preliminary interpretation was made by [facility]. No critical discrepancy.
--- NOTE | 2020-11-22 08:42 | XRAY ---
Indication: Right visual disturbance. Conventional contrast enhanced CTA head performed prior to and following 80 cc Isovue 370 contrast. Two-dimensional sagittal and coronal reformatted images obtained. Additional 3-dimensional reformatted images obtained using a separate workstation. Comparison: None CTA neck report separately. Noncontrasted images of the head demonstrates normal appearing brain parenchyma, ventricles, and bony calvarium. Orbits are bilaterally symmetric. Visualized paranasal sinuses and mastoid air cells are clear. Normal CTA appearance of the internal carotid, carotid terminus, anterior cerebral, middle cerebral, basilar, posterior cerebral, and superior cerebellar arteries bilaterally. There is no abnormal enhancing intra or extra-axial mass. Visualized paranasal sinuses and mastoid air cells are clear. Impression: Normal CT head without contrast and normal CTA head exams. Comment: Preliminary interpretation was made by [facility]. No critical discrepancy.
--- NOTE | 2020-11-22 09:05 | PCM.HP ---
History of Present Illness - Chief Complaint Chief Complaint: r/o History of Present Illness: is a 40 year old male who developed sudden onset of visual disturbance in right eye yesterday, lasted around 20 minutes and felt like he was looking through a kaleidoscope. no headache ,no numbness, tingling, weakness or paresthesias. No slurred speech or confusion, has no prior history of similar incidence, no prior history of vascular disease, has high cholesterol and on chantix to quit smoking. he denies frequent headaches or migraines. - Review of Systems Constitutional: No Fever, No Chills Eyes: Vision Changes Respiratory: No Cough, No Short Of Breath Cardiac: No Chest Pain, No Edema, No Syncope Abdominal/Gastrointestinal: No Abdominal Pain, No Nausea, No Vomiting, No Diarrhea Genitourinary Symptoms: No Dysuria Neurological: No Focal Weakness, No Gait Changes, No Headache, No Seizure, No Sensory Changes, No Speech Changes Psychological: No Alcohol Abuse, No Drug Abuse All Other Systems: Reviewed and Negative Medications & Allergies Home Medications: Home Medication List Atorvastatin Calcium [Lipitor 20MG Tablet] 20 mg PO HS 03/06/20 [History Confirmed 11/21/20] Fluticasone Propionate [Flonase NASAL] 16 gm NS DAILY PRN PRN 03/06/20 [History Confirmed 11/21/20] Loratadine 10 mg [Claritin 10 mg] 10 mg PO HS 03/06/20 [History Confirmed 11/21/20] Zolpidem Tartrate 10 mg [Ambien 10 MG] 10 mg PO HSPRN PRN 03/06/20 [History Confirmed 11/21/20] Varenicline Tartrate [Chantix] 1 mg PO BID 11/21/20 [History Confirmed 11/21/20] Allergies/Adverse Reactions: Allergies Allergy/AdvReac Type Severity Reaction Status Date / Time oseltamivir [From Tamiflu] AdvReac Vomiting Verified 11/22/20 00:00 - Past Medical History Past Medical History: Yes Neurological History: No Pertinent History ENT History: No Pertinent History Cardiac History: High Cholesterol Respiratory History: Sleep Apnea Endocrine Medical History: No Pertinent History Musculoskelatal History: Other GI Medical History: GI Bleed, Hemorrhoids History: No Pertinent History Pyscho-Social History: No Pertinent History Male Reproductive Disorders: No Pertinent History Comment: chronic right shoulder pain. shortness of breath with excessive work. 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 had bone scraped after "a pc of steel got in it" - Social History Smoking Status: Current every day smoker How long have you smoked: 29 Exposure to second hand smoke: Yes Alcohol: Rarely Drug Use: none - Physical Exam Vital Signs: Vital Signs - 24 hr Temp Pulse Resp BP Pulse Ox 11/22/20 08:00 82 F 82 10 L 120/76 93 L 11/22/20 03:37 97 F 78 18 98 11/22/20 02:54 97.7 F 76 18 115/69 95 11/22/20 01:12 80 16 117/75 98 11/22/20 00:56 100 11/22/20 00:05 80 16 117/76 96 11/21/20 23:23 81 16 127/82 97 11/21/20 21:49 98.6 F 87 18 138/99 100 General Appearance: no apparent distress, alert Neurologic Exam: alert, oriented x 3, 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, 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, normal mood/affect, nml cerebellar function, nml station & gait, sensation nml, No motor deficits Respiratory Exam: normal breath sounds, lungs clear, No respiratory distress Cardiovascular Exam: regular rate/rhythm, normal heart sounds, normal peripheral pulses Gastrointestinal/Abdomen Exam: soft, normal bowel sounds, No tenderness, No mass Extremity Exam: normal inspection, normal range of motion, pelvis stable Skin Exam: normal color, warm, dry, No rash Results - Labs Lab/Micro Results: Lab Results-Last 24 Hours 11/21/20 11/21/20 11/21/20 Range/Units 22:25 22:25 22:25 WBC 12.6 H (4.0-10.5) K/mm3 RBC 5.19 (4.1-5.6) M/mm3 Hgb 15.3 (12.5-18.0) gm/dl Hct 45.9 (42-50) % MCV 88.4 (78-100) fl MCH 29.5 (26-32) pg MCHC 33.3 (32-36) g/dl RDW 13.9 (11.5-14.0) % Plt Count 287 (150-450) K/mm3 MPV 9.0 (7.5-11.0) fl Gran % 70.5 H (36.0-66.0) % Eos # (Auto) 0.17 (0-0.5) Absolute Lymphs (auto) 2.77 (1.0-4.6) Absolute Monos (auto) 0.74 (0.0-1.3) Lymphocytes % 22.0 L (24.0-44.0) % Monocytes % 5.9 (0.0-12.0) % Eosinophils % 1.4 (0.00-5.0) % Basophils % 0.2 (0.0-0.4) % Absolute Granulocytes 8.87 H (1.4-6.9) Basophils # 0.02 (0-0.4) PT 11.0 (8.83-12.87) SECONDS INR 0.97 (0.8-3.0) APTT 31.9 (24.1-36.1) SECONDS Sodium 137 (137-145) mmol/L Potassium 3.9 (3.5-5.1) mmol/L Chloride 100 (98-107) mmol/L Carbon Dioxide 29 (22-30) mmol/L Anion Gap 12.1 (5-15) MEQ/L BUN 15 (9-20) mg/dL Creatinine 0.84 (0.66-1.25) mg/dL Estimated GFR > 60.0 ML/MIN Glucose 106 (74-106) mg/dL Hemoglobin A1c (4.5-6.0) % Calcium 9.6 (8.4-10.2) mg/dL Total Bilirubin 0.20 (0.2-1.3) mg/dL AST 17 (17-59) U/L ALT 21 (0-50) U/L Alkaline Phosphatase 75 (38-126) U/L Serum Total Protein 7.4 (6.3-8.2) g/dL Albumin 4.5 (3.5-5.0) g/dL Triglycerides (30-150) mg/dL Cholesterol (50-200) mg/dL LDL Cholesterol (30-100) mg/dL HDL Cholesterol (40-60) mg/dL Heart Disease Risk Ratio Influenza Type A Ag (NEGATIVE) Influenza Type B Ag (NEGATIVE) RSV (PCR) (Negative) SARS-CoV-2 (PCR) (NEGATIVE) 11/22/20 11/22/20 11/22/20 Range/Units 01:15 04:43 04:43 WBC 12.3 H (4.0-10.5) K/mm3 RBC 5.28 (4.1-5.6) M/mm3 Hgb 15.5 (12.5-18.0) gm/dl Hct 46.8 (42-50) % MCV 88.6 (78-100) fl MCH 29.4 (26-32) pg MCHC 33.1 (32-36) g/dl RDW 14.0 (11.5-14.0) % Plt Count 294 (150-450) K/mm3 MPV 9.3 (7.5-11.0) fl Gran % 66.3 H (36.0-66.0) % Eos # (Auto) 0.22 (0-0.5) Absolute Lymphs (auto) 3.16 (1.0-4.6) Absolute Monos (auto) 0.72 (0.0-1.3) Lymphocytes % 25.8 (24.0-44.0) % Monocytes % 5.9 (0.0-12.0) % Eosinophils % 1.8 (0.00-5.0) % Basophils % 0.2 (0.0-0.4) % Absolute Granulocytes 8.14 H (1.4-6.9) Basophils # 0.03 (0-0.4) PT (8.83-12.87) SECONDS INR (0.8-3.0) APTT (24.1-36.1) SECONDS Sodium 138 (137-145) mmol/L Potassium 4.0 (3.5-5.1) mmol/L Chloride 104 (98-107) mmol/L Carbon Dioxide 25 (22-30) mmol/L Anion Gap 13.0 (5-15) MEQ/L BUN 13 (9-20) mg/dL Creatinine 0.75 (0.66-1.25) mg/dL Estimated GFR > 60.0 ML/MIN Glucose 94 (74-106) mg/dL Hemoglobin A1c (4.5-6.0) % Calcium 9.3 (8.4-10.2) mg/dL Total Bilirubin 0.30 (0.2-1.3) mg/dL AST 17 (17-59) U/L ALT 19 (0-50) U/L Alkaline Phosphatase 78 (38-126) U/L Serum Total Protein 7.3 (6.3-8.2) g/dL Albumin 4.3 (3.5-5.0) g/dL Triglycerides (30-150) mg/dL Cholesterol (50-200) mg/dL LDL Cholesterol (30-100) mg/dL HDL Cholesterol (40-60) mg/dL Heart Disease Risk Ratio Influenza Type A Ag NEGATIVE (NEGATIVE) Influenza Type B Ag NEGATIVE (NEGATIVE) RSV (PCR) NEGATIVE (Negative) SARS-CoV-2 (PCR) NEGATIVE (NEGATIVE) 11/22/20 11/22/20 Range/Units 04:43 04:43 WBC (4.0-10.5) K/mm3 RBC (4.1-5.6) M/mm3 Hgb (12.5-18.0) gm/dl Hct (42-50) % MCV (78-100) fl MCH (26-32) pg MCHC (32-36) g/dl RDW (11.5-14.0) % Plt Count (150-450) K/mm3 MPV (7.5-11.0) fl Gran % (36.0-66.0) % Eos # (Auto) (0-0.5) Absolute Lymphs (auto) (1.0-4.6) Absolute Monos (auto) (0.0-1.3) Lymphocytes % (24.0-44.0) % Monocytes % (0.0-12.0) % Eosinophils % (0.00-5.0) % Basophils % (0.0-0.4) % Absolute Granulocytes (1.4-6.9) Basophils # (0-0.4) PT (8.83-12.87) SECONDS INR (0.8-3.0) APTT (24.1-36.1) SECONDS Sodium (137-145) mmol/L Potassium (3.5-5.1) mmol/L Chloride (98-107) mmol/L Carbon Dioxide (22-30) mmol/L Anion Gap (5-15) MEQ/L BUN (9-20) mg/dL Creatinine (0.66-1.25) mg/dL Estimated GFR ML/MIN Glucose (74-106) mg/dL Hemoglobin A1c 5.52 (4.5-6.0) % Calcium (8.4-10.2) mg/dL Total Bilirubin (0.2-1.3) mg/dL AST (17-59) U/L ALT (0-50) U/L Alkaline Phosphatase (38-126) U/L Serum Total Protein (6.3-8.2) g/dL Albumin (3.5-5.0) g/dL Triglycerides 183 H (30-150) mg/dL Cholesterol 159 (50-200) mg/dL LDL Cholesterol 94 (30-100) mg/dL HDL Cholesterol 38 L (40-60) mg/dL Heart Disease Risk Ratio 4.2 Influenza Type A Ag (NEGATIVE) Influenza Type B Ag (NEGATIVE) RSV (PCR) (Negative) SARS-CoV-2 (PCR) (NEGATIVE) - Radiology Impressions Radiology Exams & Impressions: Radiology Procedures Category Date Time Status CT ANGIOGRAPHY NECK [CT] Stat Exams 11/21/20 22:11 Completed CTA HEAD W AND/OR WO CONTRAST [CT] Stat Exams 11/21/20 22:10 Completed ECHO W/2D AND DOPPLER [US] Routine Exams 11/22/20 Ordered MRI BRAIN W/O CONTRAST [MRI] Routine Exams 11/22/20 05:58 Ordered - Other Procedures and Tests Respiratory Therapy 11/22/20 03:34 BiPap/CPAP ROUTINE Assessment/Plan (1) Visual disturbance Current Visit: Yes Status: Acute Assessment & Plan: MRI and echo ordered to evaluate for TIA vs CVA, ocular migraine also in differential. advised if workup negative should have ophthalmology evaluation after discharge Code(s): H53.9 - UNSPECIFIED VISUAL DISTURBANCE (2) Hyperlipidemia Current Visit: Yes Status: Acute Assessment & Plan: continue statin therapy Code(s): E78.5 - HYPERLIPIDEMIA, UNSPECIFIED
[2020-11-22] MEDS ORDERED: Flonase NASAL NS PRN (09:28)
[2020-11-22] MEDS ORDERED: Ambien 10 MG PO PRN (09:28)
[2020-11-22] MEDS ORDERED: MEDICATION INTERVENTION MC SCH (09:45)
[2020-11-22] MEDS ORDERED: NON-FORMULARY ITEM (Varenicline Tartrate [Chantix] 1 MG) PO SCH (10:00)
[2020-11-22] MEDS ORDERED: Pepcid 20 MG VIAL IV SCH (10:00)
--- NOTE | 2020-11-22 11:21 | XRAY ---
Indication: Right visual disturbance. Sagittal, coronal, and axial MRI brain was performed without contrast using T1, T2, FLAIR, diffusion, and ADC sequences. Comparison: None Ventriculosulcal pattern appears symmetric. No acute intracranial hemorrhage, abnormal extra-axial fluid collection, or mass effect. Diffusion images are negative for restricted signal. Fourth ventricle is midline without hydrocephalus. 7/8 cranial nerve complex bilaterally symmetric. Normal flow void signal within the major intracerebral circulation. Normal craniocervical junction and sella turcica. Visualized paranasal sinuses are clear. Impression: Negative MRI brain without contrast exam.
[2020-11-22 13:45] VITALS: BP 120/58; PULSE 76
--- NOTE | 2020-11-22 13:50 | PCM.DS ---
Discharge Summary Date of Admission: 11/22/20 02:20 Admitting Physician: MIKE QUARLES Consults: Consults on Case 11/22/20 00:04 Consult Tele-Health [Tele-Health Consult] ROUTINE Primary Care Provider: MIKE QUARLES Allergies Allergies oseltamivir [From Tamiflu] Adverse Reaction (Verified 11/22/20 00:00) Vomiting Hospital Summary - Hospital Course Hospital Course: patient arrived with complaint of visual disturbance, resolved within 20 minutes. no numbness, tingling, weakness or paresthesias. he has no complaints and insistent on going home today, impatient to wait on MRI and results. he has had no neuro complaints since admission - Vitals & Intake/Output Vital Signs: Vital Signs Temperature 97.2 F 11/22/20 12:00 Pulse Rate 76 11/22/20 12:00 Respiratory Rate 16 11/22/20 12:00 Blood Pressure 120/58 11/22/20 12:00 O2 Sat by Pulse Oximetry 96 11/22/20 12:00 Intake & Output: Intake & Output 11/20/20 11/21/20 11/22/20 11/23/20 11:59 11:59 11:59 11:59 Intake Total 120 240 Balance 120 240 Weight 97.1 kg - Lab Result Diagrams: 11/22/20 04:43 11/22/20 04:43 Lab Results-Last 24 Hrs: Lab Results-Last 24 Hours 11/21/20 11/21/20 11/21/20 Range/Units 22:25 22:25 22:25 WBC 12.6 H (4.0-10.5) K/mm3 RBC 5.19 (4.1-5.6) M/mm3 Hgb 15.3 (12.5-18.0) gm/dl Hct 45.9 (42-50) % MCV 88.4 (78-100) fl MCH 29.5 (26-32) pg MCHC 33.3 (32-36) g/dl RDW 13.9 (11.5-14.0) % Plt Count 287 (150-450) K/mm3 MPV 9.0 (7.5-11.0) fl Gran % 70.5 H (36.0-66.0) % Eos # (Auto) 0.17 (0-0.5) Absolute Lymphs (auto) 2.77 (1.0-4.6) Absolute Monos (auto) 0.74 (0.0-1.3) Lymphocytes % 22.0 L (24.0-44.0) % Monocytes % 5.9 (0.0-12.0) % Eosinophils % 1.4 (0.00-5.0) % Basophils % 0.2 (0.0-0.4) % Absolute Granulocytes 8.87 H (1.4-6.9) Basophils # 0.02 (0-0.4) PT 11.0 (8.83-12.87) SECONDS INR 0.97 (0.8-3.0) APTT 31.9 (24.1-36.1) SECONDS Sodium 137 (137-145) mmol/L Potassium 3.9 (3.5-5.1) mmol/L Chloride 100 (98-107) mmol/L Carbon Dioxide 29 (22-30) mmol/L Anion Gap 12.1 (5-15) MEQ/L BUN 15 (9-20) mg/dL Creatinine 0.84 (0.66-1.25) mg/dL Estimated GFR > 60.0 ML/MIN Glucose 106 (74-106) mg/dL Hemoglobin A1c (4.5-6.0) % Calcium 9.6 (8.4-10.2) mg/dL Total Bilirubin 0.20 (0.2-1.3) mg/dL AST 17 (17-59) U/L ALT 21 (0-50) U/L Alkaline Phosphatase 75 (38-126) U/L Serum Total Protein 7.4 (6.3-8.2) g/dL Albumin 4.5 (3.5-5.0) g/dL Triglycerides (30-150) mg/dL Cholesterol (50-200) mg/dL LDL Cholesterol (30-100) mg/dL HDL Cholesterol (40-60) mg/dL Heart Disease Risk Ratio Influenza Type A Ag (NEGATIVE) Influenza Type B Ag (NEGATIVE) RSV (PCR) (Negative) SARS-CoV-2 (PCR) (NEGATIVE) 11/22/20 11/22/20 11/22/20 Range/Units 01:15 04:43 04:43 WBC 12.3 H (4.0-10.5) K/mm3 RBC 5.28 (4.1-5.6) M/mm3 Hgb 15.5 (12.5-18.0) gm/dl Hct 46.8 (42-50) % MCV 88.6 (78-100) fl MCH 29.4 (26-32) pg MCHC 33.1 (32-36) g/dl RDW 14.0 (11.5-14.0) % Plt Count 294 (150-450) K/mm3 MPV 9.3 (7.5-11.0) fl Gran % 66.3 H (36.0-66.0) % Eos # (Auto) 0.22 (0-0.5) Absolute Lymphs (auto) 3.16 (1.0-4.6) Absolute Monos (auto) 0.72 (0.0-1.3) Lymphocytes % 25.8 (24.0-44.0) % Monocytes % 5.9 (0.0-12.0) % Eosinophils % 1.8 (0.00-5.0) % Basophils % 0.2 (0.0-0.4) % Absolute Granulocytes 8.14 H (1.4-6.9) Basophils # 0.03 (0-0.4) PT (8.83-12.87) SECONDS INR (0.8-3.0) APTT (24.1-36.1) SECONDS Sodium 138 (137-145) mmol/L Potassium 4.0 (3.5-5.1) mmol/L Chloride 104 (98-107) mmol/L Carbon Dioxide 25 (22-30) mmol/L Anion Gap 13.0 (5-15) MEQ/L BUN 13 (9-20) mg/dL Creatinine 0.75 (0.66-1.25) mg/dL Estimated GFR > 60.0 ML/MIN Glucose 94 (74-106) mg/dL Hemoglobin A1c (4.5-6.0) % Calcium 9.3 (8.4-10.2) mg/dL Total Bilirubin 0.30 (0.2-1.3) mg/dL AST 17 (17-59) U/L ALT 19 (0-50) U/L Alkaline Phosphatase 78 (38-126) U/L Serum Total Protein 7.3 (6.3-8.2) g/dL Albumin 4.3 (3.5-5.0) g/dL Triglycerides (30-150) mg/dL Cholesterol (50-200) mg/dL LDL Cholesterol (30-100) mg/dL HDL Cholesterol (40-60) mg/dL Heart Disease Risk Ratio Influenza Type A Ag NEGATIVE (NEGATIVE) Influenza Type B Ag NEGATIVE (NEGATIVE) RSV (PCR) NEGATIVE (Negative) SARS-CoV-2 (PCR) NEGATIVE (NEGATIVE) 11/22/20 11/22/20 Range/Units 04:43 04:43 WBC (4.0-10.5) K/mm3 RBC (4.1-5.6) M/mm3 Hgb (12.5-18.0) gm/dl Hct (42-50) % MCV (78-100) fl MCH (26-32) pg MCHC (32-36) g/dl RDW (11.5-14.0) % Plt Count (150-450) K/mm3 MPV (7.5-11.0) fl Gran % (36.0-66.0) % Eos # (Auto) (0-0.5) Absolute Lymphs (auto) (1.0-4.6) Absolute Monos (auto) (0.0-1.3) Lymphocytes % (24.0-44.0) % Monocytes % (0.0-12.0) % Eosinophils % (0.00-5.0) % Basophils % (0.0-0.4) % Absolute Granulocytes (1.4-6.9) Basophils # (0-0.4) PT (8.83-12.87) SECONDS INR (0.8-3.0) APTT (24.1-36.1) SECONDS Sodium (137-145) mmol/L Potassium (3.5-5.1) mmol/L Chloride (98-107) mmol/L Carbon Dioxide (22-30) mmol/L Anion Gap (5-15) MEQ/L BUN (9-20) mg/dL Creatinine (0.66-1.25) mg/dL Estimated GFR ML/MIN Glucose (74-106) mg/dL Hemoglobin A1c 5.52 (4.5-6.0) % Calcium (8.4-10.2) mg/dL Total Bilirubin (0.2-1.3) mg/dL AST (17-59) U/L ALT (0-50) U/L Alkaline Phosphatase (38-126) U/L Serum Total Protein (6.3-8.2) g/dL Albumin (3.5-5.0) g/dL Triglycerides 183 H (30-150) mg/dL Cholesterol 159 (50-200) mg/dL LDL Cholesterol 94 (30-100) mg/dL HDL Cholesterol 38 L (40-60) mg/dL Heart Disease Risk Ratio 4.2 Influenza Type A Ag (NEGATIVE) Influenza Type B Ag (NEGATIVE) RSV (PCR) (Negative) SARS-CoV-2 (PCR) (NEGATIVE) - Radiology Exams Ordered Rad Exams-Entire Visit: Radiology Procedures Category Date Time Status CT ANGIOGRAPHY NECK [CT] Stat Exams 11/21/20 22:11 Completed CTA HEAD W AND/OR WO CONTRAST [CT] Stat Exams 11/21/20 22:10 Completed ECHO W/2D AND DOPPLER [US] Routine Exams 11/22/20 Ordered MRI BRAIN W/O CONTRAST [MRI] Routine Exams 11/22/20 05:58 Completed - Procedures and Test Procedures and Tests throughout Hospitalization: Therapy Orders & Screens 11/22/20 03:34 BiPap/CPAP ROUTINE Comment: Diagnosis: r/o Discharge Exam General Appearance: no apparent distress, alert Neurologic Exam: alert, oriented x 3, cooperative, normal mood/affect, nml cerebellar function, sensation nml, No motor deficits Respiratory Exam: normal breath sounds, lungs clear, No respiratory distress Cardiovascular Exam: regular rate/rhythm, normal heart sounds Gastrointestinal/Abdomen Exam: soft, No tenderness, No mass Final Diagnosis/Problem List - Final Discharge Diagnosis/Problem (1) Visual disturbance Current Visit: Yes Status: Acute Assessment & Plan: MRI negative rules out TIA/CVA, normal exam. advised ophthalmology f/u as outpatient. echo is pending at the time of discharge Code(s): H53.9 - UNSPECIFIED VISUAL DISTURBANCE (2) Hyperlipidemia Current Visit: Yes Status: Acute Code(s): E78.5 - HYPERLIPIDEMIA, UNSPECIFIED - Discharge Disposition: Home, Self-Care Condition: Stable Prescriptions: Continue Loratadine 10 mg [Claritin 10 mg] 10 mg PO HS Fluticasone Propionate [Flonase NASAL] 16 gm NS DAILY PRN PRN PRN Reason: Allergies Atorvastatin Calcium [Lipitor 20MG Tablet] 20 mg PO HS Zolpidem Tartrate 10 mg [Ambien 10 MG] 10 mg PO HSPRN PRN PRN Reason: Insomnia Varenicline Tartrate [Chantix] 1 mg PO BID Follow up with: MIKE QUARLES [Primary Care Provider] - 11/29/20 3:00 pm
[2020-11-22] MEDS ORDERED: NON-FORMULARY ITEM (Atorvastatin Calcium 20 MG) PO SCH (22:00)
[2020-11-22] MEDS ORDERED: ZOCOR 20MG PO SCH (22:00)
[2020-11-22] MEDS ORDERED: CLARITIN 10 MG PO SCH (22:00)
[2020-11-24 07:42] VITALS: O2SAT 100
== END 2020-11-22 14:00 | disposition home or self-care (01) ==
LOC: ED 21:41 → MED SURG 11-22 02:20
PROVIDERS: ADMIT Family Medicine; ATTEND Family Medicine
DX: H53.9 Unspecified visual disturbance (principal); E78.5 Hyperlipidemia, unspecified; Z79.899 Other long term (current) drug therapy; E78.00 Pure hypercholesterolemia, unspecified; Z20.828 Contact with and (suspected) exposure to other viral communicable diseases; G47.30 Sleep apnea, unspecified
CPT/HCPCS: 0241U; 36415; 70496; 70498; 70551; 80053; 80061; 83036; 83721; 85025; 85610; 85730; 93268; 94660; 94760; 99284; G0378; Q3014; A9270-GY

== ENCOUNTER 2021-04-16 18:56 | Emergency (ER) | payer BC ==
[2021-04-16] MEDS ORDERED: Zofran 4 MG/2 ML VIAL IV ONE (20:34)
[2021-04-16] MEDS ORDERED: SUBLIMAZE 100 MCG/2 ML IV ONE (20:34)
[2021-04-16] MEDS ORDERED: SUBLIMAZE 100 MCG/2 ML ONE (20:39)
[2021-04-16] MEDS ORDERED: Zofran 4 MG/2 ML VIAL ONE (20:39)
--- NOTE | 2021-04-16 20:40 | ERPHSYRPT ---
- History of Present Illness Historian: patient Exam Limitations: no limitations Patient Subjective Stated Complaint: Patient states " I have been having right lower ABD pain for last couple of days and today it just isn't getting any better." Triage Nursing Assessment: Patient arrived to ED and ambulated back to room without difficulty. Patient A/O times 4. Patient able to follow instructions without difficulty. Patient denies any SOB or chest pain. Physician History: 41 yo wm w RLQ pain x3days which is rated a 6 on scale. Pain is dull until movement when it becomes sharp.He denies N/V/D/melana/dysuria/hematuria/fever/cough/chest pain. Timing/Duration: other (3 days) Quality: other (Dull but sharp when moving) Abdominal Pain Onset Location: RLQ Pain Radiation: no radiation Severity of Pain-Max: moderate Severity of Pain-Current: moderate Modifying Factors: Improves With: movement Associated Symptoms: loss of appetite, No back, No chest pain, No diaphoresis, No diarrhea, No fever/chills, No fatigue, No headache, No heartburn, No nausea, No neck pain, No rash, No shortness of breath, No syncope, No testicular pain, No vomiting, No weakness Previous symptoms: no prior history Allergies/Adverse Reactions: oseltamivir [From Tamiflu] Adverse Reaction (Verified 04/16/21 20:18) Vomiting Home Medications: Atorvastatin Calcium [Lipitor 20MG Tablet] 20 mg PO HS 03/06/20 [History] Fluticasone Propionate [Flonase NASAL] 16 gm NS DAILY PRN PRN 03/06/20 [History] Loratadine 10 mg [Claritin 10 mg] 10 mg PO HS 03/06/20 [History] Zolpidem Tartrate 10 mg [Ambien 10 MG] 10 mg PO HSPRN PRN 03/06/20 [History] Montelukast Sodium 10 mg PO DAILY 04/16/21 [History] Hx Tetanus, Diphtheria Vaccination/Date Given: Yes Hx Influenza Vaccination/Date Given: No Hx Pneumococcal Vaccination/Date Given: No Immunizations Up to Date: Yes Travel Risk - International Travel Have you traveled outside of the country in past 3 weeks: No - Coronavirus Screening Are you exhibiting any of the following symptoms?: No Close contact with a COVID-19 positive Pt in past 14-21 Days: No - Vaccine Status Have you recieved a Covid-19 vaccination: Yes 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 - Vaccination Dates Date of 2cond Vaccination (if applicable): 09/21/20 - Review of Systems Constitutional: No Symptoms Eyes: No Symptoms Ears, Nose, & Throat: No Symptoms Respiratory: No Symptoms Cardiac: No Symptoms Abdominal/Gastrointestinal: No Symptoms, Abdominal Pain Genitourinary Symptoms: No Symptoms Musculoskeletal: No Symptoms Skin: No Symptoms Neurological: No Symptoms Psychological: No Symptoms Endocrine: No Symptoms Hematologic/Lymphatic: No Symptoms Immunological/Allergic: No Symptoms - Past Medical History Pertinent Past Medical History: Yes Neurological History: No Pertinent History ENT History: No Pertinent History Cardiac History: High Cholesterol Respiratory History: Sleep Apnea Endocrine Medical History: No Pertinent History Musculoskeletal History: Other GI Medical History: GI Bleed, Hemorrhoids History: No Pertinent History Psycho-Social History: No Pertinent History Male Reproductive Disorders: No Pertinent History Other Medical History: chronic right shoulder pain. 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 had bone scraped after "a pc of steel got in it" - Social History Smoking Status: Current every day smoker How long have you smoked: 30 years Exposure to second hand smoke: Yes Drug Use: none Patient Lives Alone: No Significant Family History: no pertinent family hx - Nursing Vital Signs Nursing Vital Signs: Initial Vital Signs Temperature 97.7 F 04/16/21 20:16 Pulse Rate 86 04/16/21 20:16 Respiratory Rate 20 04/16/21 20:16 Blood Pressure 133/85 04/16/21 20:16 O2 Sat by Pulse Oximetry 98 04/16/21 20:16 Pain Scale Pain Intensity 2 WNL - Physical Exam General Appearance: no apparent distress Eye Exam: PERRL/EOMI, eyes nml inspection Ears, Nose, Throat Exam: normal ENT inspection, TMs normal, pharynx normal, moist mucous membranes Neck Exam: normal inspection, non-tender, supple, full range of motion, No meningismus, No mass, No Brudzinski, No Kernig's, No carotid bruit Respiratory Exam: normal breath sounds, lungs clear, airway intact, No respiratory distress Cardiovascular Exam: regular rate/rhythm, normal heart sounds, normal peripheral pulses, capillary refill <2 sec, No murmur Gastrointestinal/Abdomen Exam: soft, tenderness (TTP RLQ w guarding/No rebound) Rectal Exam: deferred Back Exam: normal inspection, normal range of motion, No CVA tenderness Extremity Exam: normal inspection, normal range of motion Neurologic Exam: alert, oriented x 3, cooperative, 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 consultant II-XII 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 as tested, normal mood/affect, nml cerebellar function, nml station & gait, sensation nml, No motor deficits, No sensory deficit Skin Exam: normal color, warm, dry Lymphatic Exam: No adenopathy SpO2 Interpretation: normal SpO2: 98 O2 Delivery: Room Air - Course Nursing assessment & vital signs reviewed: Yes - CT Exams Abdomen/Pelvis CT Interpretation: Discussed w/radiologist (CT ab-pelvis wo-neg/appendix wnl) Ordered Tests: Active Orders 24 hr Category Date Time Status ABDOMEN AND PELVIS W/0 CONTRAS [CT] Stat Exams 04/16/21 20:46 Taken AMYLASE Stat Lab 04/16/21 20:35 Completed CBC W DIFF Stat Lab 04/16/21 20:35 Completed CMP Stat Lab 04/16/21 20:35 Completed LIPASE Stat Lab 04/16/21 20:35 Completed TROPONIN Q3H Lab 04/16/21 20:35 Completed TROPONIN Q3H Lab 04/16/21 23:45 Ordered UA W/RFX UR CULTURE Stat Lab 04/16/21 20:57 Completed Medication Summary Discontinued Medications Generic Name Dose Route Start Last Admin Trade Name Lexi PRN Reason Stop Dose Admin Fentanyl Citrate 100 mcg 04/16/21 20:34 04/16/21 20:47 Sublimaze 100 Mcg/2 Ml IV 04/16/21 20:35 100 mcg STAT ONE Administration Fentanyl Citrate Confirm 04/16/21 20:39 Sublimaze 100 Mcg/2 Ml Administered 04/16/21 20:40 Dose 100 mcg .ROUTE .STK-MED ONE Ondansetron HCl 4 mg 04/16/21 20:34 04/16/21 20:48 Zofran 4 Mg/2 Ml Vial IV 04/16/21 20:35 4 mg STAT ONE Administration Ondansetron HCl Confirm 04/16/21 20:39 Zofran 4 Mg/2 Ml Vial Administered 04/16/21 20:40 Dose 4 mg .ROUTE .STK-MED ONE Lab/Rad Data: Laboratory Result Diagrams 04/16/21 20:35 04/16/21 20:35 Laboratory Results 04/16/21 04/16/21 04/16/21 Range/Units 20:57 20:35 20:35 WBC (4.0-10.5) K/mm3 RBC (4.1-5.6) M/mm3 Hgb (12.5-18.0) gm/dl Hct (42-50) % MCV (78-100) fl MCH (26-32) pg MCHC (32-36) g/dl RDW (11.5-14.0) % Plt Count (150-450) K/mm3 MPV (7.5-11.0) fl Gran % (36.0-66.0) % Eos # (Auto) (0-0.5) Absolute Lymphs (auto) (1.0-4.6) Absolute Monos (auto) (0.0-1.3) Lymphocytes % (24.0-44.0) % Monocytes % (0.0-12.0) % Eosinophils % (0.00-5.0) % Basophils % (0.0-0.4) % Absolute Granulocytes (1.4-6.9) Basophils # (0-0.4) Sodium 140 (137-145) mmol/L Potassium 4.2 (3.5-5.1) mmol/L Chloride 103 (98-107) mmol/L Carbon Dioxide 27 (22-30) mmol/L Anion Gap 13.8 (5-15) MEQ/L BUN 17 (9-20) mg/dL Creatinine 0.89 (0.66-1.25) mg/dL Estimated GFR > 60.0 ML/MIN Glucose 86 (74-106) mg/dL Calcium 9.5 (8.4-10.2) mg/dL Total Bilirubin 0.30 (0.2-1.3) mg/dL AST 22 (17-59) U/L ALT 20 (0-50) U/L Alkaline Phosphatase 66 (38-126) U/L Troponin I < 0.012 (0.000-0.034) ng/mL Serum Total Protein 7.2 (6.3-8.2) g/dL Albumin 4.4 (3.5-5.0) g/dL Amylase 57 (30-110) U/L Lipase 127 (23-300) U/L Urine Color YELLOW (YELLOW) Urine Appearance CLEAR (CLEAR) Urine pH 6.0 (5-6) Ur Specific [place] 1.024 (1.005-1.025) Urine Protein NEGATIVE (Negative) Urine Ketones NEGATIVE (NEGATIVE) Urine Blood NEGATIVE (0-5) Joss/ul Urine Nitrite NEGATIVE (NEGATIVE) Urine Bilirubin NEGATIVE (NEGATIVE) Urine Urobilinogen NEGATIVE (0-1) mg/dL Ur Leukocyte Esterase NEGATIVE (NEGATIVE) Urine WBC (Auto) NONE (0-5) /HPF Urine RBC (Auto) NONE (0-2) /HPF U Epithel Cells (Auto) NONE (FEW) /HPF Urine Bacteria (Auto) NONE (NEGATIVE) /HPF Urine Mucus (Auto) SLIGHT (NEGATIVE) /HPF Urine Culture Reflexed NO (NO) Urine Glucose NEGATIVE (NEGATIVE) mg/dL 04/16/21 Range/Units 20:35 WBC 11.7 H (4.0-10.5) K/mm3 RBC 4.95 (4.1-5.6) M/mm3 Hgb 14.8 (12.5-18.0) gm/dl Hct 44.2 (42-50) % MCV 89.3 (78-100) fl MCH 29.9 (26-32) pg MCHC 33.5 (32-36) g/dl RDW 13.7 (11.5-14.0) % Plt Count 249 (150-450) K/mm3 MPV 9.1 (7.5-11.0) fl Gran % 68.2 H (36.0-66.0) % Eos # (Auto) 0.17 (0-0.5) Absolute Lymphs (auto) 2.68 (1.0-4.6) Absolute Monos (auto) 0.83 (0.0-1.3) Lymphocytes % 23.0 L (24.0-44.0) % Monocytes % 7.1 (0.0-12.0) % Eosinophils % 1.5 (0.00-5.0) % Basophils % 0.2 (0.0-0.4) % Absolute Granulocytes 7.97 H (1.4-6.9) Basophils # 0.02 (0-0.4) Sodium (137-145) mmol/L Potassium (3.5-5.1) mmol/L Chloride (98-107) mmol/L Carbon Dioxide (22-30) mmol/L Anion Gap (5-15) MEQ/L BUN (9-20) mg/dL Creatinine (0.66-1.25) mg/dL Estimated GFR ML/MIN Glucose (74-106) mg/dL Calcium (8.4-10.2) mg/dL Total Bilirubin (0.2-1.3) mg/dL AST (17-59) U/L ALT (0-50) U/L Alkaline Phosphatase (38-126) U/L Troponin I (0.000-0.034) ng/mL Serum Total Protein (6.3-8.2) g/dL Albumin (3.5-5.0) g/dL Amylase (30-110) U/L Lipase (23-300) U/L Urine Color (YELLOW) Urine Appearance (CLEAR) Urine pH (5-6) Ur Specific [place] (1.005-1.025) Urine Protein (Negative) Urine Ketones (NEGATIVE) Urine Blood (0-5) Joss/ul Urine Nitrite (NEGATIVE) Urine Bilirubin (NEGATIVE) Urine Urobilinogen (0-1) mg/dL Ur Leukocyte Esterase (NEGATIVE) Urine WBC (Auto) (0-5) /HPF Urine RBC (Auto) (0-2) /HPF U Epithel Cells (Auto) (FEW) /HPF Urine Bacteria (Auto) (NEGATIVE) /HPF Urine Mucus (Auto) (NEGATIVE) /HPF Urine Culture Reflexed (NO) Urine Glucose (NEGATIVE) mg/dL - Progress Progress: improved Progress Note: 04/16/21 21:44 Pain greatly improved w 100umg IV Fentanyl/4mg IV Zofran Counseled pt/family regarding: lab results, diagnosis, need for follow-up, rad results - Departure Departure Disposition: Home Clinical Impression: Abdominal pain Condition: Stable Critical Care Time: No Referrals: MIKE QUARLES [Primary Care Provider] - Instructions: Acute Abdomen (Belly Pain), Adult (DC) Additional Instructions: Return to ER for increasing pain or temperature greater than 100.5
[2021-04-16 20:47] LABS: Absolute Neutrophil Ct (ANC) 7.97 (1.4-6.9); BASOPHIL % 0.2 % (0.0-0.4); Basophil (Absolute #) 0.02 (0-0.4); Eosinophil % 1.5 % (0.00-5.0); Eosinophil (Absolute #) 0.17 (0-0.5); Hematocrit 44.2 % (42-50); Hemoglobin 14.8 gm/dl (12.5-18.0); Lymphocyte (Absolute #) 2.68 (1.0-4.6); Mean Cell Volume 89.3 fl (78-100); Mean Corpuscular Hemoglobin 29.9 pg (26-32); Mean Corpuscular Hgb Concent. 33.5 g/dl (32-36); Mean Platelet Volume 9.1 fl (7.5-11.0); Monocyte (Absolute #) 0.83 (0.0-1.3); Monocytes % 7.1 % (0.0-12.0); Neutrophil % 68.2 % (36.0-66.0); Platelet Count 249 K/mm3 (150-450); Red Blood Count 4.95 M/mm3 (4.1-5.6); Red Cell Distribution Width 13.7 % (11.5-14.0); White Blood Count 11.7 K/mm3 (4.0-10.5)
[2021-04-16 20:49] LABS: Appearance CLEAR (CLEAR); Bilirubin NEGATIVE (NEGATIVE); Blood NEGATIVE Ery/ul (0-5); Glucose NEGATIVE (NEGATIVE); Ketones NEGATIVE (NEGATIVE); Leukocyte Esterase NEGATIVE (NEGATIVE); Mucus SLIGHT /HPF (NEGATIVE); Nitrite NEGATIVE (NEGATIVE); Protein,Urine Dip NEGATIVE (Negative); Specific Gravity 1.024 (1.005-1.025); Urobilinogen NEGATIVE mg/dL (0-1)
[2021-04-16 21:01] LABS: ALBUMIN 4.4 g/dL (3.5-5.0); ALKALINE PHOSPHATASE 66 U/L (38-126); AMYLASE 57 U/L (30-110); ANION GAP 13.8 MEQ/L (5-15); BLOOD UREA NITROGEN 17 mg/dL (9-20); CHLORIDE 103 mmol/L (98-107); Calcium 9.5 mg/dL (8.4-10.2); Carbon Dioxide 27 mmol/L (22-30); Creatinine 1 0.89 mg/dL (0.66-1.25); EST GLOMERULAR FILTRATION RATE > 60.0 ML/MIN; Glucose 86 mg/dL (74-106); LIPASE 127 U/L (23-300); Potassium 4.2 mmol/L (3.5-5.1); SGOT/AST 22 U/L (17-59); SGPT/ALT 20 U/L (0-50); SODIUM 140 mmol/L (137-145); Total Protein 7.2 g/dL (6.3-8.2)
[2021-04-16 22:00] VITALS: BP 115/72; PULSE 75
[2021-04-16 22:51] VITALS: O2SAT 98
--- NOTE | 2021-04-17 09:04 | XRAY ---
Indication: Right lower quadrant pain. Multiple contiguous axial images obtained through the abdomen and pelvis without contrast. Comparison: March 24, 2018. Lung bases remain clear. Heart not enlarged. Stomach is distended with food/fluid. Noncontrasted stomach and bowel loops nonobstructed again with normal appendix. Gallbladder partially contracted without gallstones. No free fluid/air. Remaining liver, gallbladder, pancreas, spleen, adrenal glands, kidneys, ureters, bladder, and aorta are unremarkable for noncontrast exam. Osseous structures intact again with bilateral L5 spondylolysis without spondylolisthesis. No ventral or inguinal hernias. Impression: 1. Stable L5 spondylolysis without spondylolisthesis. 2. Remaining CT abdomen/pelvis without contrast exam is again negative.
== END 2021-04-16 22:02 | disposition home or self-care (01) ==
LOC: ED 18:56
DX: R10.31 Right lower quadrant pain (principal); E78.00 Pure hypercholesterolemia, unspecified; Z79.899 Other long term (current) drug therapy
CPT/HCPCS: 36000; 36415; 74176; 80053; 81001; 82150; 83690; 84484; 85025; 96374; 96375; 99284; J2405; J3010

== ENCOUNTER 2021-05-10 10:55 | Emergency (ER) | payer BC ==
[2021-05-10 11:10] VITALS: O2SAT 98
[2021-05-10] MEDS ORDERED: TORAdol 30 mg Injection IM ONE (11:23)
[2021-05-10] MEDS ORDERED: Adacel Vial IM ONE ×2 (11:23→11:32)
[2021-05-10] MEDS ORDERED: TORAdol 30 mg Injection ONE (11:32)
[2021-05-10 12:36] VITALS: BP 107/82; PULSE 98
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
--- NOTE | 2021-05-10 17:03 | XRAY ---
Indication: Left chest and left shoulder pain following injury. Comparison: April 11, 2019. Portable chest again demonstrates normal heart and lungs. Bony thorax intact again with distal right clavicle resection. No new/acute findings.
--- NOTE | 2021-05-10 17:03 | XRAY ---
Indication: Left chest and left shoulder pain following injury. Comparison: None 3 view left shoulder obtained. No bony, articular, or soft tissue abnormalities.
== END 2021-05-10 12:51 | disposition home or self-care (01) ==
LOC: ED 10:55
DX: S40.012A Contusion of left shoulder, initial encounter (principal); V89.0XXA Person injured in unspecified motor-vehicle accident, nontraffic, initial encounter; Y93.89 Activity, other specified; Y92.89 Other specified places as the place of occurrence of the external cause; Y99.8 Other external cause status
CPT/HCPCS: 71045; 73030; 90471; 90715; 96372; 99284; J1885

== ENCOUNTER 2022-04-07 06:04 | Day surgery (SDC) | payer BC ==
[2022-04-07] MEDS ORDERED: Lactated Ringers 1,000 ML IV SCH (06:30)
[2022-04-07] MEDS ORDERED: Xylocaine-Mpf 2% 5 Ml Vial ONE (07:40)
[2022-04-07] MEDS ORDERED: DIPRIVAN 200 MG/20 ML IV ONE ×2 (07:40→07:43)
[2022-04-07] MEDS ORDERED: Versed 2 MG/2 ML Injection ONE (07:40)
[2022-04-07 08:06] VITALS: O2SAT 94
[2022-04-07 08:11] VITALS: BP 138/80; PULSE 83
--- NOTE | 2022-04-07 08:38 | OP ---
SURGERY DATE/TIME: 04/07/2022 0721 PREOPERATIVE DIAGNOSIS: Rectal bleeding. POSTOPERATIVE DIAGNOSES: 1) External hemorrhoids. 2) Small polyps in the transverse and sigmoid colon. PROCEDURE: Colonoscopy with cold forceps biopsies. SURGEON: Dr. Kwame Borges. ANESTHESIA: MAC. Medications given by anesthesia department. HISTORY: The patient is a 42-year-old white male patient reports he has had persistent rectal bleeding. The patient was seen to have external hemorrhoids but the patient was felt the need to have endoscopic evaluation as no active bleeding was noted. The patient was appraised of the risks of the procedure including the risk of perforation, phlebitis, untoward reaction to medication, bleeding and missed lesions. The patient verbalized his understanding and desired to have the procedure performed. DESCRIPTION OF PROCEDURE: The patient was given the medications by the anesthesia department. He had continuous pulse oximetry, ECG monitoring, intermittent blood pressure monitoring during the examination. He was placed in the left lateral decubitus position. A digital rectal examination was performed and revealed external hemorrhoids but no bleeding, normal anal sphincter tone, no masses and normal prostate. The flexible Olympus pediatric colonoscope was used to intubate the rectum. A view of the colon was developed sequentially to the cecum including approximately 20 cm into the terminal ileum. Upon insertion and withdrawal was noted small polyps in the transverse and sigmoid colon. These were biopsied and destroyed using cold biopsy technique. The scope was removed from the patient who tolerated the procedure well and was sent back to OP recovery in good condition. The prep was noted to be fair to good.
== END 2022-04-07 08:15 | disposition home or self-care (01) ==
LOC: SDC 06:04
PROVIDERS: ATTEND Family Medicine
DX: D12.5 Benign neoplasm of sigmoid colon (principal); D12.3 Benign neoplasm of transverse colon; K64.4 Residual hemorrhoidal skin tags; K62.5 Hemorrhage of anus and rectum
CPT/HCPCS: J2250; J2704

== ENCOUNTER 2022-07-11 03:52 | Emergency (ER) | payer BC ==
--- NOTE | 2022-07-11 04:06 | ERPHSYRPT ---
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 Patient does not have chest pain. He has no abdominal pain. He has had no nausea vomiting or diarrhea. Patient is allergic to Tamiflu. He does have a history of sleep apnea, hyperlipidemia and continues to smoke cigarettes daily. Timing/Duration: yesterday, gradual onset, worse Cough Quality/Degree: mild (Nonproductive) Possible Cause: no prior episodes Modifying Factors: Improves With: coughing Associated Symptoms: cough, muscle aches, nasal congestion, nasal drainage, sore throat, No fever, No chest pain/soreness, No dizziness, No shortness of breath Allergies/Adverse Reactions: oseltamivir [From Tamiflu] Adverse Reaction (Verified 03/17/22 16:13) Vomiting Home Medications: Atorvastatin Calcium [Lipitor 20MG Tablet] 20 mg PO HS 03/06/20 [History] Fluticasone Propionate [Flonase NASAL] 16 gm NS DAILY PRN PRN 03/06/20 [History] Loratadine 10 mg [Claritin 10 mg] 10 mg PO HS 03/06/20 [History] Montelukast Sodium 10 mg PO DAILY 04/16/21 [History] Tizanidine HCl 4 mg [Zanaflex 4 MG] 4 mg PO DAILY PRN PRN 05/10/21 [History] Hx Tetanus, Diphtheria Vaccination/Date Given: Yes Hx Influenza Vaccination/Date Given: No Hx Pneumococcal Vaccination/Date Given: No Travel Risk - International Travel Have you traveled outside of the country in past 3 weeks: No - Coronavirus Screening Are you exhibiting any of the following symptoms?: Yes Symptoms: Fever, Cough: New Onset, Headaches/Body Aches/Fatigue Close contact with a COVID-19 positive Pt in past 14-21 Days: Yes - Vaccine Status Have you recieved a Covid-19 vaccination: No President Practicing Urologist: Moderna - Vaccination Dates Date of 2cond Vaccination (if applicable): 09/21/20 - Review of Systems Constitutional: Fever Eyes: No Symptoms Ears, Nose, & Throat: Nose Congestion, Nose Discharge, Throat Pain Respiratory: Cough Cardiac: No Symptoms Abdominal/Gastrointestinal: No Symptoms Genitourinary Symptoms: No Symptoms Musculoskeletal: No Symptoms Skin: No Symptoms Neurological: No Symptoms Psychological: No Symptoms Endocrine: No Symptoms Hematologic/Lymphatic: No Symptoms Immunological/Allergic: No Symptoms All Other Systems: Reviewed and Negative - Past Medical History Pertinent Past Medical History: Yes Neurological History: Other ENT History: No Pertinent History Cardiac History: High Cholesterol Respiratory History: Sleep Apnea Endocrine Medical History: No Pertinent History Musculoskeletal History: No Pertinent History GI Medical History: GI Bleed, Hemorrhoids History: No Pertinent History Psycho-Social History: No Pertinent History Male Reproductive Disorders: No Pertinent History Other Medical History: "PAINLESS MIGRAINE", GOUT - Past Surgical History Past Surgical History: Yes Neuro Surgical History: No Pertinent History Cardiac: No Pertinent History Respiratory: No Pertinent History Gastrointestinal: No Pertinent History Genitourinary: No Pertinent History Musculoskeletal: Orthopedic Surgery Male Surgical History: No Pertinent History Other Surgical History: right shoulder x3-repair of ligaments tendons and right knee due to MRSA had bone scraped after "a pc of steel got in it", L shoulder - Social History Smoking Status: Current every day smoker How long have you smoked: 30 years Exposure to second hand smoke: Yes Drug Use: none Patient Lives Alone: No Significant Family History: no pertinent family hx - Nursing Vital Signs Nursing Vital Signs: Initial Vital Signs Temperature 100.1 F 07/11/22 03:58 Pulse Rate 101 H 07/11/22 03:58 Respiratory Rate 16 07/11/22 03:58 Blood Pressure 129/72 07/11/22 03:58 O2 Sat by Pulse Oximetry 96 07/11/22 03:58 Pain Scale Pain Intensity 7 - Physical Exam General Appearance: no apparent distress, alert, anxiety Eye Exam: PERRL/EOMI, eyes nml inspection Ears, Nose, Throat Exam: normal ENT inspection, moist mucous membranes Neck Exam: normal inspection, non-tender, supple, full range of motion Respiratory Exam: normal breath sounds, lungs clear, airway intact, No chest tenderness, No respiratory distress Cardiovascular Exam: regular rate/rhythm, normal heart sounds, normal peripheral pulses Gastrointestinal/Abdomen Exam: soft, normal bowel sounds, No tenderness Rectal Exam: not done Back Exam: normal inspection, normal range of motion, No CVA tenderness, No vertebral tenderness Extremity Exam: normal inspection, normal range of motion, pelvis stable Neurologic Exam: alert, oriented x 3, cooperative, senior care specialist II-XII nml as tested, normal mood/affect, nml cerebellar function, nml station & gait, sensation nml Skin Exam: normal color, warm, dry Lymphatic Exam: No adenopathy SpO2 Interpretation: normal O2 Delivery: Room Air - Course Nursing assessment & vital signs reviewed: Yes Ordered Tests: Active Orders 24 hr Category Date Time Status CHEST 1 VIEW (PORTABLE) Stat Exams 07/11/22 04:20 Taken Medication Summary Discontinued Medications Generic Name Dose Route Start Last Admin Trade Name Lexi PRN Reason Stop Dose Admin Hydrocodone Bitart/Acetaminophen 10 ml 07/11/22 04:22 07/11/22 04:28 Hydrocodone/Acetaminophen 5 Ml Udcup PO 07/11/22 04:23 10 ml STAT STA Administration Hydrocodone Bitart/Acetaminophen Confirm 07/11/22 04:27 Hydrocodone/Acetaminophen 5 Ml Udcup Administered 07/11/22 04:28 Dose 10 ml .ROUTE .STK-MED ONE Ibuprofen 600 mg 07/11/22 04:22 07/11/22 04:28 Ibuprofen 600 Mg Tablet PO 07/11/22 04:23 600 mg STAT ONE Administration Ibuprofen Confirm 07/11/22 04:27 Ibuprofen 600 Mg Tablet Administered 07/11/22 04:28 Dose 600 mg .ROUTE .STK-MED ONE Lab/Rad Data: Laboratory Results 07/11/22 Range/Units 04:10 Influenza Type A Ag POSITIVE (NEGATIVE) Influenza Type B Ag NEGATIVE (NEGATIVE) RSV (PCR) NEGATIVE (Negative) SARS-CoV-2 (PCR) NEGATIVE (NEGATIVE) Group A Strep Antibody NOT DETECTED (NEGATIVE) - Progress Progress: improved Air Movement: good Progress Note: 07/11/22 04:42 Chest x-ray shows no acute cardiopulmonary process Blood Culture(s) Obtained: No Counseled pt/family regarding: lab results, diagnosis, need for follow-up, rad results - Departure Departure Disposition: Home Clinical Impression: Influenza A H1N1 infection Condition: Stable Critical Care Time: No Referrals: MIKE BORGES [Primary Care Provider] - Follow up/PCP as directed Additional Instructions: Drink plenty of fluids. Take your medication as prescribed. Follow-up with your primary care physician for further evaluation management. Prescriptions: Hydrocodone/Acetaminophen [Hydrocodone-Acetamn 7.5-325/15] 10 ml PO Q8H PRN PRN #120 ml MDD 30 ml PRN Reason: Cough Prednisone 10 mg [Deltasone 10 mg] 10 mg PO TID #12 tablet
[2022-07-11] MEDS ORDERED: HYDROCODONE-ACETAMIN 2.5-108/5 ML SOLUTION PO STA (04:22)
[2022-07-11] MEDS ORDERED: MOTRIN 600 MG PO ONE (04:22)
[2022-07-11] MEDS ORDERED: MOTRIN 600 MG ONE (04:27)
[2022-07-11] MEDS ORDERED: HYDROCODONE-ACETAMIN 2.5-108/5 ML SOLUTION ONE (04:27)
[2022-07-11 04:48] LABS: Group A Strep NOT DETECTED (NEGATIVE)
[2022-07-11 04:50] LABS: INFLUENZA B NEGATIVE (NEGATIVE); RESPIRATORY SYNCTIAL VIRUS NEGATIVE (Negative); SARS-CoV-2 Xpert Express NEGATIVE (NEGATIVE)
[2022-07-11 04:51] LABS: INFLUENZA A POSITIVE (NEGATIVE)
[2022-07-11 05:35] VITALS: BP 118/70; PULSE 97; O2SAT 98
--- NOTE | 2022-07-11 08:04 | XRAY ---
Indication: Fever and cough. Comparison: May 10, 2021 Portable chest less inflated and remains clear. Heart not enlarged. Bony thorax intact again with distal right clavicle resection.
== END 2022-07-11 05:29 | disposition home or self-care (01) ==
LOC: ED 03:52
DX: J10.1 Influenza due to other identified influenza virus with other respiratory manifestations (principal); R50.9 Fever, unspecified; R05.1 Acute cough; R51.9 Headache, unspecified; E78.5 Hyperlipidemia, unspecified; Z79.891 Long term (current) use of opiate analgesic; Z79.52 Long term (current) use of systemic steroids; Z79.899 Other long term (current) drug therapy; Z72.0 Tobacco use
CPT/HCPCS: 0241U; 71045; 87651; 99283; A9270-GY

== ENCOUNTER 2022-09-20 22:56 | Emergency (ER) | payer BC | END 2022-09-20 23:32 | disposition left against medical advice (07) | LOC: ED 22:56 | DX: Z53.21 Procedure and treatment not carried out due to patient leaving prior to being seen by health care provider (principal) ==

== ENCOUNTER 2024-01-07 22:34 | Observation (INO) | payer BC ==
[2024-01-07 23:05] LABS: Absolute Neutrophil Ct (ANC) 8.81 x10^3/uL (1.78-5.38); BASOPHIL % 0.4 % (0.2-1.2); Basophil (Absolute #) 0.05 x10^3/uL (0.01-0.08); Eosinophil (Absolute #) 0 x10^3/uL (0.04-0.54); Hematocrit 39.8 % (40.1-51.0); Hemoglobin 13.6 g/dL (13.7-17.5); IMMATURE GRAN # 0.04 x10^3u/L (0.001-0.031); IMMATURE GRAN % 0.3 % (0.001-0.429); Lymphocyte (Absolute #) 2.71 x10^3/uL (1.32-3.57); Mean Cell Volume 87.3 fL (79.0-92.2); Mean Corpuscular Hemoglobin 29.8 pg (25.7-32.2); Mean Corpuscular Hgb Concent. 34.2 g/dL (32.3-36.5); Mean Platelet Volume 9.2 fL (9.4-12.4); Monocyte (Absolute #) 0.72 x10^3/uL (0.30-0.82); Monocytes % 5.8 % (5.3-12.2); Neutrophil % 71.5 % (34.0-67.9); Platelet Count 272 x10^3/uL (163-337); Red Blood Count 4.56 x10^6/uL (4.63-6.08); Red Cell Distribution Width 13.2 % (11.6-14.4); White Blood Count 12.3 x10^3/uL (4.23-9.07)
[2024-01-07 23:18] LABS: ALBUMIN 3.8 g/dL (3.5-5.0); ANION GAP 9.9 MEQ/L (5-15); BILIRUBIN,TOTAL 0.2 mg/dL (0.2-1.3); Calcium 9.3 mg/dL (8.4-10.2); Creatinine 1 0.85 mg/dL (0.66-1.25); EST GLOMERULAR FILTRATION RATE 111.3 ML/MIN; Potassium 3.8 mmol/L (3.5-5.1); Total Protein 6.2 g/dL (6.3-8.2)
[2024-01-07 23:20] LABS: INR 0.86 (0.8-3.0); PROTIME 9.5 SECONDS (9.4-12.5); PTT 26.8 SECONDS (25.1-36.5)
--- NOTE | 2024-01-07 23:24 | ERPHSYRPT ---
- History of Present Illness Historian: patient, other (Spouse) Exam Limitations: no limitations Patient Subjective Stated Complaint: pt states he has been having rectal bleeding for the past week, tonight has been worse and has had pressure in lower abd. Triage Nursing Assessment: pt alert and oriented, answers questions approp. pt ambulates into room with steady gait noted. respirations nonlabored. skin warm and dry. abd soft, pt reports some tenderness to rt abd. bowel sounds present x4 quads. Physician History: Patient is a 43-year-old male with bright red blood per rectum x 1 week. Patient states that the bleeding is escalated over the last day. He has taken several showers today due to the bleeding. The blood is without stool. History of bleeding from polyps in the past and has had several colonoscopies per Dr. Borges. He is not on any anticoagulants and takes no aspirin or NSAIDs. Gross blood in stool in the ER observed. He has some mild suprapubic cramping which she rates mild. There is no fever, no diarrhea, no melena, no dysuria, and no hematuria. Timing/Duration: other ( 1 week, worse today) Activities at Onset: rest Quality: cramping ( mild suprapubic crampy) Abdominal Pain Onset Location: suprapubic Pain Radiation: no radiation Severity of Pain-Max: moderate Severity of Pain-Current: mild Modifying Factors: Improves With: nothing Associated Symptoms: denies symptoms Previous symptoms: same symptoms as today Allergies/Adverse Reactions: oseltamivir [From Tamiflu] Adverse Reaction (Verified 01/07/24 23:00) Vomiting Home Medications: Atorvastatin Calcium [Lipitor 20MG Tablet] 20 mg PO HS 03/06/20 [History] Cyclobenzaprine HCl 10 mg [Cyclobenzaprine 10 MG] 10 mg PO TIDPRN PRN 01/07/24 [History] Hx Tetanus, Diphtheria Vaccination/Date Given: Yes Hx Influenza Vaccination/Date Given: No Hx Pneumococcal Vaccination/Date Given: No Immunizations Up to Date: Yes Travel Risk - International Travel Have you traveled outside of the country in past 3 weeks: No - Emerging Infectious Disease Are you exhibiting symptoms associated with any current EIDs: No - Review of Systems Constitutional: No Symptoms Eyes: No Symptoms Ears, Nose, & Throat: No Symptoms Respiratory: No Symptoms Cardiac: No Symptoms Abdominal/Gastrointestinal: No Symptoms, Abdominal Pain, Hematochezia Genitourinary Symptoms: No Symptoms Musculoskeletal: No Symptoms Skin: No Symptoms Neurological: No Symptoms Psychological: No Symptoms Endocrine: No Symptoms Hematologic/Lymphatic: No Symptoms Immunological/Allergic: No Symptoms - Past Medical History Pertinent Past Medical History: Yes Neurological History: Migraines, Other ENT History: No Pertinent History Cardiac History: High Cholesterol Respiratory History: Sleep Apnea Endocrine Medical History: No Pertinent History Musculoskeletal History: No Pertinent History GI Medical History: Colitis, GI Bleed, Hemorrhoids History: No Pertinent History Psycho-Social History: No Pertinent History Male Reproductive Disorders: No Pertinent History Other Medical History: "PAINLESS MIGRAINE", GOUT. insomnia. 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 mult colonoscopies Significant Family History: no pertinent family hx - Social History Smoking Status: Current every day smoker How long have you smoked: 32 Exposure to second hand smoke: Yes Drug Use: none Patient Lives Alone: No - Social Determinants of Health Will the patient participate in the screening: Declined to provide - Nursing Vital Signs Nursing Vital Signs: Initial Vital Signs Temperature 97.5 F 01/07/24 22:38 Pulse Rate 98 H 01/07/24 22:38 Respiratory Rate 16 01/07/24 22:38 Blood Pressure 115/76 01/07/24 22:38 O2 Sat by Pulse Oximetry 95 01/07/24 22:38 Pain Scale Pain Intensity 3 within normal limits - Physical Exam General Appearance: no apparent distress, anxiety Eye Exam: PERRL/EOMI, eyes nml inspection Ears, Nose, Throat Exam: normal ENT inspection, TMs normal, pharynx normal, moist mucous membranes Neck Exam: normal inspection, non-tender, supple, full range of motion, No meningismus, No Brudzinski, No Kernig's Respiratory Exam: normal breath sounds, lungs clear, airway intact Cardiovascular Exam: regular rate/rhythm, normal heart sounds, normal peripheral pulses, capillary refill <2 sec, No murmur Gastrointestinal/Abdomen Exam: soft, normal bowel sounds, tenderness ( mild miranda prapubic tenderness to palpation without guarding or rebound) Rectal Exam: other ( gross blood in stool) Back Exam: normal inspection, normal range of motion Extremity Exam: normal inspection, normal range of motion Neurologic Exam: alert, oriented x 3, cooperative, 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, normal mood/affect, nml cerebellar function, nml station & gait, sensation nml Skin Exam: normal color, warm, dry Lymphatic Exam: No adenopathy SpO2 Interpretation: normal SpO2: 95 O2 Delivery: Room Air - Course Nursing assessment & vital signs reviewed: Yes Ordered Tests: Active Orders 24 hr Category Date Time Status ABDOMEN AND PELVIS W CONTRAST [CT] Stat Exams 01/08/24 00:03 Completed CBC W DIFF Stat Lab 01/07/24 22:55 Completed CMP Stat Lab 01/07/24 22:55 Completed HEMOGLOBIN AND HEMATOCRIT Stat Lab 01/08/24 01:05 Completed PROTIME WITH INR Stat Lab 01/07/24 22:55 Completed PTT Stat Lab 01/07/24 22:55 Completed Medication Summary Discontinued Medications Generic Name Dose Route Start Last Admin Trade Name Freq PRN Reason Stop Dose Admin Pantoprazole Sodium 40 mg 01/08/24 02:19 Pantoprazole 40 Mg Vial IV 01/08/24 02:20 STAT ONE Lab/Rad Data: Laboratory Result Diagrams 01/08/24 01:05 01/07/24 22:55 Laboratory Results 01/08/24 01/08/24 01/07/24 Range/Units 01:05 00:01 22:55 WBC (4.23-9.07) x10^3/uL RBC (4.63-6.08) x10^6/uL Hgb 13.2 L (13.7-17.5) g/dL Hct 39.5 L (40.1-51.0) % MCV (79.0-92.2) fL MCH (25.7-32.2) pg MCHC (32.3-36.5) g/dL RDW (11.6-14.4) % Plt Count (163-337) x10^3/uL MPV (9.4-12.4) fL Gran % (34.0-67.9) % Immature Gran % (Auto) (0.001-0.429) % Nucleat RBC Rel Count (0.00-0.2) % Eos # (Auto) (0.04-0.54) x10^3/uL Immature Gran # (Auto) (0.001-0.031) x10^3u/L Absolute Lymphs (auto) (1.32-3.57) x10^3/uL Absolute Monos (auto) (0.30-0.82) x10^3/uL Absolute Nucleated RBC (0.00-0.012) x10^3u/L Lymphocytes % (21.8-53.1) % Monocytes % (5.3-12.2) % Eosinophils % (0.8-7.0) % Basophils % (0.2-1.2) % Absolute Granulocytes (1.78-5.38) x10^3/uL Basophils # (0.01-0.08) x10^3/uL PT 9.5 (9.4-12.5) SECONDS INR 0.86 (0.8-3.0) APTT 26.8 (25.1-36.5) SECONDS Sodium (135-145) mmol/L Potassium (3.5-5.1) mmol/L Chloride (98-107) mmol/L Carbon Dioxide (22-30) mmol/L Anion Gap (5-15) MEQ/L BUN (9-20) mg/dL Creatinine (0.66-1.25) mg/dL Estimated GFR ML/MIN Glucose (74-106) mg/dL Calcium (8.4-10.2) mg/dL Total Bilirubin (0.2-1.3) mg/dL AST (17-59) U/L ALT (0-50) U/L Alkaline Phosphatase (38-126) U/L Serum Total Protein (6.3-8.2) g/dL Albumin (3.5-5.0) g/dL Stl Occult Blood (IFOB) POSITIVE A (NEGATIVE) 01/07/24 01/07/24 Range/Units 22:55 22:55 WBC 12.3 H (4.23-9.07) x10^3/uL RBC 4.56 L (4.63-6.08) x10^6/uL Hgb 13.6 L (13.7-17.5) g/dL Hct 39.8 L (40.1-51.0) % MCV 87.3 (79.0-92.2) fL MCH 29.8 (25.7-32.2) pg MCHC 34.2 (32.3-36.5) g/dL RDW 13.2 (11.6-14.4) % Plt Count 272 (163-337) x10^3/uL MPV 9.2 L (9.4-12.4) fL Gran % 71.5 H (34.0-67.9) % Immature Gran % (Auto) 0.3 (0.001-0.429) % Nucleat RBC Rel Count 0.0 (0.00-0.2) % Eos # (Auto) 0 L (0.04-0.54) x10^3/uL Immature Gran # (Auto) 0.04 H (0.001-0.031) x10^3u/L Absolute Lymphs (auto) 2.71 (1.32-3.57) x10^3/uL Absolute Monos (auto) 0.72 (0.30-0.82) x10^3/uL Absolute Nucleated RBC 0.00 (0.00-0.012) x10^3u/L Lymphocytes % 22.0 (21.8-53.1) % Monocytes % 5.8 (5.3-12.2) % Eosinophils % 0.0 L (0.8-7.0) % Basophils % 0.4 (0.2-1.2) % Absolute Granulocytes 8.81 H (1.78-5.38) x10^3/uL Basophils # 0.05 (0.01-0.08) x10^3/uL PT (9.4-12.5) SECONDS INR (0.8-3.0) APTT (25.1-36.5) SECONDS Sodium 139 (135-145) mmol/L Potassium 3.8 (3.5-5.1) mmol/L Chloride 107 (98-107) mmol/L Carbon Dioxide 26 (22-30) mmol/L Anion Gap 9.9 (5-15) MEQ/L BUN 11 (9-20) mg/dL Creatinine 0.85 (0.66-1.25) mg/dL Estimated GFR 111.3 ML/MIN Glucose 108 H (74-106) mg/dL Calcium 9.3 (8.4-10.2) mg/dL Total Bilirubin 0.20 (0.2-1.3) mg/dL AST 17 (17-59) U/L ALT 19 (0-50) U/L Alkaline Phosphatase 69 (38-126) U/L Serum Total Protein 6.2 L (6.3-8.2) g/dL Albumin 3.8 (3.5-5.0) g/dL Stl Occult Blood (IFOB) (NEGATIVE) - Progress Progress: improved Progress Note: 01/08/24 02:30 Nursing note and vital signs reviewed. No further housing insecurity noted. All lab results thoroughly reviewed and shared with patient/ Patient with a history of GI bleeding and multiple colonoscopies in the past presents with gross hematochezia. Patient's vital signs and hemoglobin are stable, but hemoglobin has dropped almost 1 g from his baseline hemoglobin. Observational admit per Dr. Guadarrama. Patient was typed/screened and was given 40 mg IV Protonix while in ER. atient/ agreed to the observational admit. He is not a [employer] and is able to except blood products. Discussed with : Armida Counseled pt/family regarding: lab results, diagnosis, need for follow-up, rad results Medical Desision Making - Independent Historian Additional History obtained from: Spouse - Discussion of managment Care discussed with:: hospitalist Reviewed:: Test results, Need for additional workup Agreed on:: Treatment plan, place in obs Will see patient: in hospital - Diagnostic Testing Diagnostic test were ordered, analyzed, and reviewed by me: Yes Radiological Interpretation: Teleradiologist Report - Risk of complications The pt has a high risk of morbidity or mortality based on: Decision regarding hospitilization or escalation of hosp level of care - Departure Departure Disposition: Observation Clinical Impression: GI bleed Condition: Stable Critical Care Time: No Referrals: MIKE BORGES [Primary Care Provider] - Follow up/PCP as directed
[2024-01-08 00:03] LABS: IFOB TEST RESULTS POSITIVE (NEGATIVE)
[2024-01-08 01:12] LABS: Hematocrit 39.5 % (40.1-51.0); Hemoglobin 13.2 g/dL (13.7-17.5)
--- NOTE | 2024-01-08 02:02 | XRAY ---
CLINICAL HISTORY: GI bleed/abdominal pain COMPARISON: none TECHNIQUE: Multiple contiguous axial images were obtained from the level of diaphragm to the pubis symphysis. This study was acquired after the IV administration of iodinated contrast material, given the patients indications for the examination. If IV contrast material had not been administered, the likelihood of detecting abnormalities relevant to the patients condition would have been substantially decreased. Coronal and sagittal reformatted images were generated and reviewed to improve anatomic localization and optimize lesion detection. CT scan was performed according to ALARA (as low as reasonable achievable). FINDINGS: The visualized lung bases are clear. The liver is normal in size and attenuation. No focal liver lesions are seen. There is no intra or extrahepatic biliary ductal dilatation. Hepatic vasculature is patent. The gallbladder is unremarkable. The spleen, pancreas, and adrenal glands are unremarkable. The kidneys are normal in size and attenuation. There is no hydronephrosis or perinephric fat stranding. No renal calculi or renal masses are identified. The ureters are normal in caliber and no ureteral calculi are seen. The bladder is normal in contour. No evidence of focal or diffuse bowel wall thickening or evidence of bowel obstruction is seen. The appendix is visualized in the right lower quadrant and appears within normal limits. No adenopathy or fluid collections are seen. The aorta is normal in caliber. Pelvic viscera are unreamrkable. No aggressive appearing osseous lesions are identified. IMPRESSION: No evidence of active extravasation of contrast or active hemorrahge in the provided venous and delayed phase. Electronically Signed by: Cameron Delgadillo MD. (01/08/2024 01:59:14 EDT)
[2024-01-08] MEDS ORDERED: PROTONIX 40 MG IV IV ONE (02:30)
[2024-01-08] MEDS: PROTONIX 40 MG IV IV ONE (02:33)
[2024-01-08 03:18] LABS: ABO TYPING B; Antibody Screen NEGATIVE (NEGATIVE); RH TYPING POSITIVE
--- NOTE | 2024-01-08 05:31 | PCM.HP ---
History of Present Illness - Chief Complaint Chief Complaint: GI bleed Date: 01/08/24 History of Present Illness: Mr. Norwood is a 43 year-old gentleman wtih NICKOLAS on CPAP and HLD who presents with hematochezia. He has had multipe colonoscopies for hematochezia in the past and polyps have been discovered to be the etiology of his bleeding. This most recent time, he has had bright red blood per rectum for a week, and he states that it is "more" than before - it has been more continuous. Upon arrival to [place], laboratory data was remarkable for a slightly lower than normal H/H, and CT abdomen and pelvis was unremarkable. On my examination, he is comfortable denying any current fevers, chills, nausea, vomiting, diarrhea, syncope, presyncope, visual changes, orthopnea, PND, odynophagia, dysphagia, chest pain, shortness of breath, belly pain, dysuria, hematuria, melena, or neurological changes. All other systems were reviewed and were negative. - Review of Systems Constitutional: Other ( PER HPI) Medications & Allergies Home Medications: Home Medication List Atorvastatin Calcium [Lipitor 20MG Tablet] 20 mg PO HS 03/06/20 [History Confirmed 01/07/24] Cyclobenzaprine HCl 10 mg [Cyclobenzaprine 10 MG] 10 mg PO TIDPRN PRN 01/07/24 [History Confirmed 01/07/24] Allergies/Adverse Reactions: Allergies Allergy/AdvReac Type Severity Reaction Status Date / Time oseltamivir [From Tamiflu] AdvReac Vomiting Verified 01/07/24 23:00 - Past Medical History Past Medical History: Yes Neurological History: Migraines, Other ENT History: No Pertinent History Cardiac History: High Cholesterol Respiratory History: Sleep Apnea Endocrine Medical History: No Pertinent History Musculoskelatal History: No Pertinent History GI Medical History: Colitis, GI Bleed, Hemorrhoids History: No Pertinent History Pyscho-Social History: No Pertinent History Male Reproductive Disorders: No Pertinent History Comment: "PAINLESS MIGRAINE", GOUT. insomnia. spinal stenosis - Past Surgical History Past Surgical History: Yes Neuro Surgical History: No Pertinent History Cardiac History: No Pertinent History Respiratory Surgery: No Pertinent History GI Surgical History: No Pertinent History Genitourinary Surgical Hx: No Pertinent History Musculskeletal Surgical Hx: Orthopedic Surgery Male Surgical History: No Pertinent History Other Surgical History: right shoulder x3-repair of ligaments tendons and right knee due to MRSA had bone scraped after "a pc of steel got in it", L shoulder. mult colonoscopies Significant Family History: no pertinent family hx - Social History Smoking Status: Current every day smoker How long have you smoked: 32 Exposure to second hand smoke: Yes Alcohol: Occasionally Drug Use: none - Social Determinants of Health Will the patient participate in the screening: Yes Do you worry about a steady place to live?: No Do you have any problems with any of the following?: No known problems In the past 12 months,have you had to go without utilities?: No Have you or anyone in your house had to go without enough: No Transportation Issues: No Has anyone in your support network made you feel unsafe?: No Does the patient want assistance with any of the above?: No - Physical Exam Vital Signs: Vital Signs - 24 hr Temp Pulse Resp BP BP Pulse Ox 01/08/24 03:55 97.3 F 85 17 119/72 94 L 01/08/24 03:34 83 16 107/74 96 01/08/24 03:00 81 16 107/89 95 01/08/24 02:40 95 01/08/24 02:30 91/62 94 L 01/08/24 02:00 90 16 97/72 96 01/08/24 01:30 88 112/74 98 01/08/24 01:22 84 16 98/70 95 01/08/24 00:00 89 16 102/67 97 01/07/24 23:51 102/73 94 L 01/07/24 22:38 97.5 F 98 H 16 115/76 95 General Appearance: no apparent distress, alert Neurologic Exam: alert, oriented x 3, cooperative, normal mood/affect, nml cerebellar function, nml station & gait, sensation nml, No motor deficits Eye Exam: PERRL/EOMI, eyes nml inspection Ears, Nose, Throat Exam: normal ENT inspection, TMs normal, pharynx normal, moist mucous membranes Neck Exam: normal inspection, non-tender, supple, full range of motion Respiratory Exam: normal breath sounds, lungs clear, No respiratory distress Cardiovascular Exam: regular rate/rhythm, normal heart sounds, normal peripheral pulses Gastrointestinal/Abdomen Exam: soft, normal bowel sounds, No tenderness, No mass Back Exam: normal inspection, normal range of motion, No CVA tenderness, No vertebral tenderness Extremity Exam: normal inspection, normal range of motion, pelvis stable Skin Exam: normal color, warm, dry, No rash Lymphatic Exam: No adenopathy Results - Labs Lab/Micro Results: Lab Results-Last 24 Hours 01/07/24 01/07/24 01/07/24 Range/Units 22:55 22:55 22:55 WBC 12.3 H (4.23-9.07) x10^3/uL RBC 4.56 L (4.63-6.08) x10^6/uL Hgb 13.6 L (13.7-17.5) g/dL Hct 39.8 L (40.1-51.0) % MCV 87.3 (79.0-92.2) fL MCH 29.8 (25.7-32.2) pg MCHC 34.2 (32.3-36.5) g/dL RDW 13.2 (11.6-14.4) % Plt Count 272 (163-337) x10^3/uL MPV 9.2 L (9.4-12.4) fL Gran % 71.5 H (34.0-67.9) % Immature Gran % (Auto) 0.3 (0.001-0.429) % Nucleat RBC Rel Count 0.0 (0.00-0.2) % Eos # (Auto) 0 L (0.04-0.54) x10^3/uL Immature Gran # (Auto) 0.04 H (0.001-0.031) x10^3u/L Absolute Lymphs (auto) 2.71 (1.32-3.57) x10^3/uL Absolute Monos (auto) 0.72 (0.30-0.82) x10^3/uL Absolute Nucleated RBC 0.00 (0.00-0.012) x10^3u/L Lymphocytes % 22.0 (21.8-53.1) % Monocytes % 5.8 (5.3-12.2) % Eosinophils % 0.0 L (0.8-7.0) % Basophils % 0.4 (0.2-1.2) % Absolute Granulocytes 8.81 H (1.78-5.38) x10^3/uL Basophils # 0.05 (0.01-0.08) x10^3/uL PT 9.5 (9.4-12.5) SECONDS INR 0.86 (0.8-3.0) APTT 26.8 (25.1-36.5) SECONDS Sodium 139 (135-145) mmol/L Potassium 3.8 (3.5-5.1) mmol/L Chloride 107 (98-107) mmol/L Carbon Dioxide 26 (22-30) mmol/L Anion Gap 9.9 (5-15) MEQ/L BUN 11 (9-20) mg/dL Creatinine 0.85 (0.66-1.25) mg/dL Estimated GFR 111.3 ML/MIN Glucose 108 H (74-106) mg/dL Calcium 9.3 (8.4-10.2) mg/dL Total Bilirubin 0.20 (0.2-1.3) mg/dL AST 17 (17-59) U/L ALT 19 (0-50) U/L Alkaline Phosphatase 69 (38-126) U/L Serum Total Protein 6.2 L (6.3-8.2) g/dL Albumin 3.8 (3.5-5.0) g/dL Stl Occult Blood (IFOB) (NEGATIVE) ABO Group Rh Factor Antibody Screen (NEGATIVE) 01/08/24 01/08/24 01/08/24 Range/Units 00:01 00:01 01:05 WBC (4.23-9.07) x10^3/uL RBC (4.63-6.08) x10^6/uL Hgb 13.2 L (13.7-17.5) g/dL Hct 39.5 L (40.1-51.0) % MCV (79.0-92.2) fL MCH (25.7-32.2) pg MCHC (32.3-36.5) g/dL RDW (11.6-14.4) % Plt Count (163-337) x10^3/uL MPV (9.4-12.4) fL Gran % (34.0-67.9) % Immature Gran % (Auto) (0.001-0.429) % Nucleat RBC Rel Count (0.00-0.2) % Eos # (Auto) (0.04-0.54) x10^3/uL Immature Gran # (Auto) (0.001-0.031) x10^3u/L Absolute Lymphs (auto) (1.32-3.57) x10^3/uL Absolute Monos (auto) (0.30-0.82) x10^3/uL Absolute Nucleated RBC (0.00-0.012) x10^3u/L Lymphocytes % (21.8-53.1) % Monocytes % (5.3-12.2) % Eosinophils % (0.8-7.0) % Basophils % (0.2-1.2) % Absolute Granulocytes (1.78-5.38) x10^3/uL Basophils # (0.01-0.08) x10^3/uL PT (9.4-12.5) SECONDS INR (0.8-3.0) APTT (25.1-36.5) SECONDS Sodium (135-145) mmol/L Potassium (3.5-5.1) mmol/L Chloride (98-107) mmol/L Carbon Dioxide (22-30) mmol/L Anion Gap (5-15) MEQ/L BUN (9-20) mg/dL Creatinine (0.66-1.25) mg/dL Estimated GFR ML/MIN Glucose (74-106) mg/dL Calcium (8.4-10.2) mg/dL Total Bilirubin (0.2-1.3) mg/dL AST (17-59) U/L ALT (0-50) U/L Alkaline Phosphatase (38-126) U/L Serum Total Protein (6.3-8.2) g/dL Albumin (3.5-5.0) g/dL Stl Occult Blood (IFOB) POSITIVE A (NEGATIVE) ABO Group B Rh Factor POSITIVE Antibody Screen NEGATIVE (NEGATIVE) - Radiology Impressions Radiology Exams & Impressions: Radiology Procedures Category Date Time Status ABDOMEN AND PELVIS W CONTRAST [CT] Stat Exams 01/08/24 00:03 Completed - Other Procedures and Tests Respiratory Therapy 01/08/24 03:56 BiPap/CPAP ROUTINE 01/08/24 04:25 Smoking Cessation Education ONCE Assessment/Plan (1) GI bleed Current Visit: Yes Status: Acute Assessment & Plan: ASSESSMENT 1. GI Bleed 2. Acute Anemia 3. History of Colonic Polyps 4. Obstructive Sleep Apnea on CPAP 5. Hyperlipidemia PLAN 1. Monitor H/H; recheck now and then BID if bleeding is slow like it is right now 2. CT A/P negative for any overt pathology 3. NPO 4. Consult surgery in the AM for colonoscopy PPI The entirety of this encounter was done via telemedicine with audio and visual. Consent was obtained for a telemedicine encounter. Moe Guadarrama MD Pulmonary and Critical Care Medicine Code(s): K92.2 - GASTROINTESTINAL HEMORRHAGE, UNSPECIFIED Telemedicine Encounter - Telemedicine Encounter Telemedicine Encounter: The entirety of this encounter was performed via Telemedicine"
[2024-01-08 05:54] LABS: Absolute Neutrophil Ct (ANC) 8.02 x10^3/uL (1.78-5.38); BASOPHIL % 0.4 % (0.2-1.2); Basophil (Absolute #) 0.05 x10^3/uL (0.01-0.08); Eosinophil (Absolute #) 0 x10^3/uL (0.04-0.54); Hematocrit 41.5 % (40.1-51.0); IMMATURE GRAN # 0.07 x10^3u/L (0.001-0.031); IMMATURE GRAN % 0.6 % (0.001-0.429); Lymphocyte (Absolute #) 2.75 x10^3/uL (1.32-3.57); Lymphocytes % 23.9 % (21.8-53.1); Mean Cell Volume 88.3 fL (79.0-92.2); Mean Corpuscular Hemoglobin 29.8 pg (25.7-32.2); Mean Corpuscular Hgb Concent. 33.7 g/dL (32.3-36.5); Mean Platelet Volume 9.1 fL (9.4-12.4); Monocyte (Absolute #) 0.61 x10^3/uL (0.30-0.82); Monocytes % 5.3 % (5.3-12.2); Neutrophil % 69.8 % (34.0-67.9); Platelet Count 275 x10^3/uL (163-337); Red Cell Distribution Width 13.2 % (11.6-14.4); White Blood Count 11.5 x10^3/uL (4.23-9.07)
[2024-01-08 06:06] LABS: ALBUMIN 3.8 g/dL (3.5-5.0); BILIRUBIN,TOTAL 0.2 mg/dL (0.2-1.3); Creatinine 1 0.68 mg/dL (0.66-1.25); Potassium 3.8 mmol/L (3.5-5.1); Total Protein 6.6 g/dL (6.3-8.2)
[2024-01-08] MEDS: PROTONIX 40 MG IV IV SCH (09:16)
[2024-01-08] MEDS: Sodium Chloride 0.9% 1000 ML 1,000 ML IV SCH (09:17)
[2024-01-09 05:43] LABS: Hematocrit 39.4 % (40.1-51.0); Hemoglobin 13.4 g/dL (13.7-17.5); Mean Cell Volume 87.4 fL (79.0-92.2); Mean Corpuscular Hemoglobin 29.7 pg (25.7-32.2); Mean Platelet Volume 9.1 fL (9.4-12.4); Platelet Count 263 x10^3/uL (163-337); Red Blood Count 4.51 x10^6/uL (4.63-6.08); Red Cell Distribution Width 13.6 % (11.6-14.4); White Blood Count 10.6 x10^3/uL (4.23-9.07)
[2024-01-09 05:57] LABS: ALBUMIN 3.6 g/dL (3.5-5.0); ANION GAP 9.3 MEQ/L (5-15); BILIRUBIN,TOTAL 0.4 mg/dL (0.2-1.3); Calcium 8.6 mg/dL (8.4-10.2); Creatinine 1 0.68 mg/dL (0.66-1.25); Total Protein 6.2 g/dL (6.3-8.2)
[2024-01-09] MEDS: TYLENOL 325 MG PO PRN (07:58)
--- NOTE | 2024-01-09 10:52 | CONS ---
DATE OF SERVICE: 01/08/2024 CHIEF COMPLAINT: Rectal bleeding. REASON FOR CONSULTATION: Rectal bleeding. REFERRING PROVIDER: Hospitalist. HISTORY OF PRESENT ILLNESS: This 43-year-old male presents with about a week of rectal bleeding that is mainly bright red blood with some clots as well. It has been going on for about a week, but it has been much worse yesterday. He had about 7 episodes of bloody bowel movements yesterday. He has had multiple colonoscopies in the past usually for rectal bleeding. His last colonoscopy was with Dr. Borges in 2021 which he just found a polyp and external hemorrhoids. The patient says he does not usually have any issues with hemorrhoids except for when he does a bowel prep. He denies any abdominal surgery. He denies any nausea or vomiting. He does have some mild lower abdominal pain. MEDICATIONS: Reviewed. See MR including atorvastatin and cyclobenzaprine. ALLERGIES: TAMIFLU. PAST MEDICAL HISTORY: Migraines. High cholesterol. Sleep apnea. PAST SURGICAL HISTORY: Right shoulder surgery. SOCIAL HISTORY: Current every day smoker. FAMILY HISTORY: Noncontributory. PHYSICAL EXAMINATION: GENERAL: In no acute distress. HEENT: Sclerae anicteric. Extraocular motion intact. NECK: Supple, no JVD. CHEST: Nonlabored breathing. ABDOMEN: Soft. Minimally tender in left lower quadrant. NEURO: Awake, alert and oriented. PSYCH: Appropriate mood and affect. RESULTS REVIEWED: CBC, CMP, PT/INR reviewed and grossly within normal limits except for a white blood cell count slightly elevated at 12.3 and his hemoglobin essentially normal at 13.6. INR was 0.86. Occult stool is positive. ASSESSMENT AND PLAN: Rectal bleeding: This sounds like a lower GI bleed and has been primarily bright red blood. May be diverticulosis or internal hemorrhoid bleeding or some other pathology. The patient is completely stable and hemoglobin is not particularly low. He has not had any further bleeding episodes today. We will plan for a bowel prep tomorrow and a colonoscopy on Wednesday with possible rubber band ligation of internal hemorrhoids if these appear to be the source of his bleeding. Risks and benefits of procedure discussed with the patient in depth including risk of bleeding, infection or anesthesia complication or other potential complications. The patient would like to proceed.
[2024-01-09] MEDS ORDERED: Zofran 4 MG/2 ML VIAL IV PRN (10:54)
--- NOTE | 2024-01-09 10:56 | PCM.NOTE ---
Date and Time: 01/09/24 1051 Subjective Assessment: 01/09/24 Mr. Norwood is a 43 year-old gentleman with PMHX of NICKOLAS on CPAP and HLD. He pre sented to ER with hematochezia on 01/08/24. He has had multiple colonoscopies for hematochezia in the past and polyps have been discovered to be the etiology of his bleeding. This most recent time, he has had bright red blood per rectum for a week, and he states that it is "more" than before - it has been more continuous. Upon arrival to [place], laboratory data was remarkable for a slightly lower than normal H/H, and CT abdomen and pelvis was unremarkable. Hgb is stable at 10.9 today. He did again have some blood in stool last night. He was given the option to go home yesterday by surgery and do colonoscopy OP and he refused and wanted to stay. Plan is to start colon prep today and have colonoscopy tomorrow. Continue Protonix IV. He c/o LLQ and RLQ pain with palpation. He denies CP, SOB, N/V/D. - Review of Systems Constitutional: No Fever, No Chills Eyes: No Symptoms Ears, Nose, & Throat: No Symptoms Respiratory: No Cough, No Short Of Breath Cardiac: No Chest Pain, No Edema, No Syncope Abdominal/Gastrointestinal: Abdominal Pain, No Nausea, No Vomiting, No Diarrhea Genitourinary Symptoms: No Dysuria Musculoskeletal: No Back Pain, No Neck Pain Skin: No Rash Neurological: No Dizziness, No Focal Weakness, No Sensory Changes Psychological: No Symptoms Endocrine: No Symptoms Hematologic/Lymphatic: No Symptoms Immunological/Allergic: No Symptoms Objective Exam General Appearance: no apparent distress, alert Neurologic Exam: alert, oriented x 3, cooperative, normal mood/affect, nml cerebellar function, sensation nml, No motor deficits Skin Exam: normal color, warm, dry Eye Exam: PERRL, EOMI, eyes nml inspection Ears, Nose, Throat Exam: normal ENT inspection, pharynx normal, moist mucous membranes Neck Exam: normal inspection, non-tender, supple, full range of motion Respiratory Exam: normal breath sounds, lungs clear, No respiratory distress Cardiovascular Exam: regular rate/rhythm, normal heart sounds Gastrointestinal/Abdomen Exam: soft, tenderness (with palpation LLQ, RLQ), No mass Extremity Exam: normal inspection, normal range of motion Back Exam: normal inspection, normal range of motion, No CVA tenderness, No vertebral tenderness Male Genitalia Exam: deferred Rectal Exam: deferred Objective Data Vital Signs: Vital Signs - 24 hr Temp Pulse Resp BP Pulse Ox 01/09/24 07:35 97.8 F 74 16 96/60 95 01/09/24 04:00 98.1 F 79 18 111/62 98 01/09/24 00:00 83 14 01/08/24 20:00 98.2 F 84 18 102/63 96 01/08/24 16:00 97.5 F 88 19 129/82 97 01/08/24 11:23 97.5 F 87 17 109/72 96 Pain Assessment - Last Documented Pain Intensity 2 Pain Scale Used 0-10 Pain Scale Intake and Output: Intake & Output 01/06/24 01/07/24 01/08/24 01/09/24 11:59 11:59 11:59 11:59 Intake Total 0 2920 Balance 0 2920 Weight 117.8 kg Lab Results: Lab Results-Last 24 Hours 01/09/24 01/09/24 Range/Units 05:30 05:30 WBC 10.6 H (4.23-9.07) x10^3/uL RBC 4.51 L (4.63-6.08) x10^6/uL Hgb 13.4 L (13.7-17.5) g/dL Hct 39.4 L (40.1-51.0) % MCV 87.4 (79.0-92.2) fL MCH 29.7 (25.7-32.2) pg MCHC 34.0 (32.3-36.5) g/dL RDW 13.6 (11.6-14.4) % Plt Count 263 (163-337) x10^3/uL MPV 9.1 L (9.4-12.4) fL Sodium 137 (135-145) mmol/L Potassium 4.0 (3.5-5.1) mmol/L Chloride 109 H (98-107) mmol/L Carbon Dioxide 23 (22-30) mmol/L Anion Gap 9.3 (5-15) MEQ/L BUN 10 (9-20) mg/dL Creatinine 0.68 (0.66-1.25) mg/dL Estimated GFR 119.0 ML/MIN Glucose 97 (74-106) mg/dL Calcium 8.6 (8.4-10.2) mg/dL Total Bilirubin 0.40 (0.2-1.3) mg/dL AST 18 (17-59) U/L ALT 20 (0-50) U/L Alkaline Phosphatase 65 (38-126) U/L Serum Total Protein 6.2 L (6.3-8.2) g/dL Albumin 3.6 (3.5-5.0) g/dL Radiology Exams: Radiology Procedures Category Date Time Status ABDOMEN AND PELVIS W CONTRAST [CT] Stat Exams 01/08/24 00:03 Completed Assessment/Plan (1) GI bleed Current Visit: Yes Status: Acute Assessment & Plan: - General surgery consult - Hgb 10.9- 01/08 - + blood in stool last night - Start colon prep today - colonoscopy tomorrow - + occult stool - Protonix IV BID - Clear liquid diet, NPO after midnight Code(s): K92.2 - GASTROINTESTINAL HEMORRHAGE, UNSPECIFIED (2) Abdominal pain Current Visit: No Status: Acute Assessment & Plan: - LLQ and RLQ with palpation - CT abd/ pelvis: 01/08/24 IMPRESSION: No evidence of active extravasation of contrast or active hemorrahge in the provided venous and delayed phase. - Zofran PRN nausea - tylenol PRN pain Code(s): R10.9 - UNSPECIFIED ABDOMINAL PAIN (3) Smoker Current Visit: Yes Status: Chronic Assessment & Plan: - advised cessation - nicotine patch Code(s): F17.200 - NICOTINE DEPENDENCE, UNSPECIFIED, UNCOMPLICATED (4) Obesity (BMI 30-39.9) Current Visit: Yes Status: Chronic Assessment & Plan: - advised diet and exercise control VTE: SCD's PPI: Protonix Next of KIN: Elham Norwood [phone]- spouse D/C plan: 1-2 days Code status: Full Code(s): E66.9 - OBESITY, UNSPECIFIED
[2024-01-09] MEDS: Nicoderm CQ 21 MG TOP SCH (12:14)
[2024-01-09] MEDS: Golytely Solution 4000 ML PO ONE (16:02)
[2024-01-10 05:04] LABS: Hematocrit 39.1 % (40.1-51.0); Hemoglobin 13.1 g/dL (13.7-17.5); Mean Cell Volume 87.5 fL (79.0-92.2); Mean Corpuscular Hemoglobin 29.3 pg (25.7-32.2); Mean Corpuscular Hgb Concent. 33.5 g/dL (32.3-36.5); Mean Platelet Volume 9.2 fL (9.4-12.4); Platelet Count 255 x10^3/uL (163-337); Red Blood Count 4.47 x10^6/uL (4.63-6.08); Red Cell Distribution Width 13.2 % (11.6-14.4)
[2024-01-10 05:21] LABS: ALBUMIN 3.6 g/dL (3.5-5.0); ANION GAP 9.3 MEQ/L (5-15); BILIRUBIN,TOTAL 0.4 mg/dL (0.2-1.3); Calcium 8.5 mg/dL (8.4-10.2); Creatinine 1 0.66 mg/dL (0.66-1.25); EST GLOMERULAR FILTRATION RATE 120.1 ML/MIN; Potassium 3.8 mmol/L (3.5-5.1); Total Protein 6.2 g/dL (6.3-8.2)
--- NOTE | 2024-01-10 05:50 | PCM.NOTE ---
Date and Time: 01/10/24 0547 Subjective Assessment: Mr. Norwood is a 43 year-old gentleman with PMHX of NICKOLAS on CPAP and HLD admitted 01/09/24 for GI bleed after experiencing a week history of bright red blood per rectum. Upon arrival to [place], laboratory data was remarkable for a slightly lower than normal H/H, and CT abdomen and pelvis was unremarkable. Surgery has been consulted and plans for colonoscopy to be performed today. Patients hemoglobin has remained stable. He is currently receiving IV protonix. Objective Data Vital Signs: Vital Signs - 24 hr Temp Pulse Resp BP Pulse Ox 01/10/24 05:28 18 01/09/24 23:53 97.7 F 77 18 114/74 98 01/09/24 19:50 97.6 F 93 H 18 118/79 95 01/09/24 15:59 97.5 F 93 H 16 134/66 99 01/09/24 11:36 97.6 F 88 16 99/64 97 01/09/24 07:35 97.8 F 74 16 96/60 95 Pain Assessment - Last Documented Pain Intensity 0 Pain Scale Used 0-10 Pain Scale Intake and Output: Intake & Output 01/07/24 01/08/24 01/09/24 01/10/24 11:59 11:59 11:59 11:59 Intake Total 0 2920 6591 Balance 0 2920 6591 Weight 117.8 kg Lab Results: Lab Results-Last 24 Hours 01/09/24 01/09/24 01/10/24 Range/Units 05:30 05:30 04:45 WBC 10.6 H 12.0 H (4.23-9.07) x10^3/uL RBC 4.51 L 4.47 L (4.63-6.08) x10^6/uL Hgb 13.4 L 13.1 L (13.7-17.5) g/dL Hct 39.4 L 39.1 L (40.1-51.0) % MCV 87.4 87.5 (79.0-92.2) fL MCH 29.7 29.3 (25.7-32.2) pg MCHC 34.0 33.5 (32.3-36.5) g/dL RDW 13.6 13.2 (11.6-14.4) % Plt Count 263 255 (163-337) x10^3/uL MPV 9.1 L 9.2 L (9.4-12.4) fL Sodium 137 (135-145) mmol/L Potassium 4.0 (3.5-5.1) mmol/L Chloride 109 H (98-107) mmol/L Carbon Dioxide 23 (22-30) mmol/L Anion Gap 9.3 (5-15) MEQ/L BUN 10 (9-20) mg/dL Creatinine 0.68 (0.66-1.25) mg/dL Estimated GFR 119.0 ML/MIN Glucose 97 (74-106) mg/dL Calcium 8.6 (8.4-10.2) mg/dL Total Bilirubin 0.40 (0.2-1.3) mg/dL AST 18 (17-59) U/L ALT 20 (0-50) U/L Alkaline Phosphatase 65 (38-126) U/L Serum Total Protein 6.2 L (6.3-8.2) g/dL Albumin 3.6 (3.5-5.0) g/dL 01/09/ Range/Units 04:45 WBC (4.23-9.07) x10^3/uL RBC (4.63-6.08) x10^6/uL Hgb (13.7-17.5) g/dL Hct (40.1-51.0) % MCV (79.0-92.2) fL MCH (25.7-32.2) pg MCHC (32.3-36.5) g/dL RDW (11.6-14.4) % Plt Count (163-337) x10^3/uL MPV (9.4-12.4) fL Sodium 138 (135-145) mmol/L Potassium 3.8 (3.5-5.1) mmol/L Chloride 108 H (98-107) mmol/L Carbon Dioxide 24 (22-30) mmol/L Anion Gap 9.3 (5-15) MEQ/L BUN 8 L (9-20) mg/dL Creatinine 0.66 (0.66-1.25) mg/dL Estimated GFR 120.1 ML/MIN Glucose 94 (74-106) mg/dL Calcium 8.5 (8.4-10.2) mg/dL Total Bilirubin 0.40 (0.2-1.3) mg/dL AST 17 (17-59) U/L ALT 18 (0-50) U/L Alkaline Phosphatase 64 (38-126) U/L Serum Total Protein 6.2 L (6.3-8.2) g/dL Albumin 3.6 (3.5-5.0) g/dL Assessment/Plan (1) GI bleed Current Visit: Yes Status: Acute Assessment & Plan: -No acute findings on CT abd/pelvis -Tele -IVF/protonix -Hgb stable at -continue to monitor and replace if hgb <7 -Plan for surgery to perform colonoscopy - -Avoid ASA/NSAIDS Code(s): K92.2 - GASTROINTESTINAL HEMORRHAGE, UNSPECIFIED (2) Abdominal pain Current Visit: No Status: Acute Assessment & Plan: -No acute findings on CT -Continue zofran/Tylenol prn Code(s): R10.9 - UNSPECIFIED ABDOMINAL PAIN (3) Obesity (BMI 30-39.9) Current Visit: Yes Status: Chronic Assessment & Plan: - advised diet and exercise control Code(s): E66.9 - OBESITY, UNSPECIFIED (4) Smoker Current Visit: Yes Status: Chronic Assessment & Plan: - advised cessation - nicotine patch VTE: SCD's PPI: Protonix Next of KIN: Elham Norwood [phone]- spouse D/C plan: 1-2 days Code status: Full Code(s): F17.200 - NICOTINE DEPENDENCE, UNSPECIFIED, UNCOMPLICATED
[2024-01-10] MEDS ORDERED: Xylocaine-Mpf 2% 5 Ml Vial ONE (14:56)
[2024-01-10] MEDS ORDERED: DIPRIVAN 200 MG/20 ML IV ONE ×2 (14:56→15:06)
[2024-01-10 16:10] VITALS: RESP 18
--- NOTE | 2024-01-10 16:18 | PCM.DS ---
Discharge Summary Date of Admission: 01/08/24 03:16 Date of Discharge: 01/10/24 Admitting Physician: SINA GALVEZ MD Consults: Consults on Case 01/08/24 07:50 Consult Surgery ROUTINE Primary Care Provider: MIKE QUARLES Allergies Allergies oseltamivir [From Tamiflu] Adverse Reaction (Verified 01/07/24 23:00) Vomiting Hospital Summary - Hospital Course Hospital Course: Mr. Norwood is a 43 year-old gentleman with PMHX of NICKOLAS on CPAP and HLD admitted 01/09/24 for GI bleed after experiencing a week history of bright red blood per rectum. Upon arrival to [place], laboratory data was remarkable for a slightly lower than normal H/H, and CT abdomen and pelvis was unremarkable. Surgery consulted, colonoscopy performed with 3 rectal polyps and 1 transverse polyp. Additionally 3 hemorrhoids banded. Patient to hold NSAIDS/ASA x 1 week and follow up with surgery in one week. Patient's hgb stable at 13.1. Discharge Note New Diagnosis: GI bleed New Medications: none Follow Up: PCP/Surgery Latest Assessment & Plan (1) GI bleed Current Visit: Yes Status: Acute Assessment & Plan: -No acute findings on CT abd/pelvis -Tele -Iprotonix -Hgb stable at 13.1 -colonoscopy - as stated above - follow up with surg in one week -Avoid ASA/NSAIDS x 1 week Code(s): K92.2 - GASTROINTESTINAL HEMORRHAGE, UNSPECIFIED (2) Abdominal pain Current Visit: No Status: Acute Assessment & Plan: -No acute findings on CT -Continue zofran/Tylenol prn Code(s): R10.9 - UNSPECIFIED ABDOMINAL PAIN (3) Obesity (BMI 30-39.9) Current Visit: Yes Status: Chronic Assessment & Plan: - advised diet and exercise control Code(s): E66.9 - OBESITY, UNSPECIFIED (4) Smoker Current Visit: Yes Status: Chronic Assessment & Plan: - advised cessation - nicotine patch I spent 35 minutes [id number] with the patient on the day of discharge performing discharge exam, discussing hospital stay and discharge instructions with patient and caregivers, preparation of discharge records, prescriptions & referral forms and addressing any questions/concerns the patient had as documented above. - Vitals & Intake/Output Vital Signs: Vital Signs Temperature 97.7 F 01/10/24 16:10 Pulse Rate 82 06/24/24 16:10 Respiratory Rate 18 01/10/24 16:10 Blood Pressure 133/83 01/10/24 16:10 O2 Sat by Pulse Oximetry 96 01/10/24 16:10 Intake & Output: Intake & Output 01/08/24 01/09/24 01/10/24 01/11/24 11:59 11:59 11:59 11:59 Intake Total 0 2920 6591 Balance 0 2920 6591 Weight 117.8 kg 117.8 kg - Lab Result Diagrams: 01/10/24 04:45 01/10/24 04:45 Lab Results-Last 24 Hrs: Lab Results-Last 24 Hours 01/10/24 01/10/24 Range/Units 04:45 04:45 WBC 12.0 H (4.23-9.07) x10^3/uL RBC 4.47 L (4.63-6.08) x10^6/uL Hgb 13.1 L (13.7-17.5) g/dL Hct 39.1 L (40.1-51.0) % MCV 87.5 (79.0-92.2) fL MCH 29.3 (25.7-32.2) pg MCHC 33.5 (32.3-36.5) g/dL RDW 13.2 (11.6-14.4) % Plt Count 255 (163-337) x10^3/uL MPV 9.2 L (9.4-12.4) fL Sodium 138 (135-145) mmol/L Potassium 3.8 (3.5-5.1) mmol/L Chloride 108 H (98-107) mmol/L Carbon Dioxide 24 (22-30) mmol/L Anion Gap 9.3 (5-15) MEQ/L BUN 8 L (9-20) mg/dL Creatinine 0.66 (0.66-1.25) mg/dL Estimated GFR 120.1 ML/MIN Glucose 94 (74-106) mg/dL Calcium 8.5 (8.4-10.2) mg/dL Total Bilirubin 0.40 (0.2-1.3) mg/dL AST 17 (17-59) U/L ALT 18 (0-50) U/L Alkaline Phosphatase 64 (38-126) U/L Serum Total Protein 6.2 L (6.3-8.2) g/dL Albumin 3.6 (3.5-5.0) g/dL - Procedures and Test Procedures and Tests throughout Hospitalization: Therapy Orders & Screens 01/08/24 03:56 BiPap/CPAP ROUTINE Comment: Diagnosis: GI bleed 01/08/24 04:25 RT Screen per Nursing Assess ONCE Comment: Protocol Order Physician Instructions: Greater than 3 points order RT Admission Screen Reason For Exam: Triggered on Admission Diagnosis: GI bleed Diagnosis: GI bleed Pneumonia: No Home O2: No Asthma: No CHF: No Home CPAP/BIPAP: Yes Home Nebs/MDI: Yes: for allergies, seasonal Total Points: 10 Smoking Cessation Education ONCE Comment: Diagnosis: GI bleed Smoking Status: Current every day smoker How long have you smoked: 32 Have you smoked in the past 12 months: Yes Approximately how many cigarettes per day: 1/2 pack Do you dip or chew tobacco: No Discharge Exam General Appearance: no apparent distress Neurologic Exam: alert, oriented x 3, cooperative Eye Exam: PERRL Ears, Nose, Throat Exam: normal ENT inspection Neck Exam: normal inspection Respiratory Exam: normal breath sounds, lungs clear Cardiovascular Exam: regular rate/rhythm Gastrointestinal/Abdomen Exam: soft, normal bowel sounds Male Genitalia Exam: deferred Rectal Exam: deferred Back Exam: normal inspection Extremity Exam: normal inspection Skin Exam: normal color Final Diagnosis/Problem List - Final Discharge Diagnosis/Problem (1) GI bleed Current Visit: Yes Status: Acute Code(s): K92.2 - GASTROINTESTINAL HEMORRHAGE, UNSPECIFIED (2) Abdominal pain Current Visit: No Status: Acute Code(s): R10.9 - UNSPECIFIED ABDOMINAL PAIN (3) Obesity (BMI 30-39.9) Current Visit: Yes Status: Chronic Code(s): E66.9 - OBESITY, UNSPECIFIED (4) Smoker Current Visit: Yes Status: Chronic Code(s): F17.200 - NICOTINE DEPENDENCE, U NSPECIFIED, UNCOMPLICATED - Discharge Disposition: Home, Self-Care Condition: Stable Prescriptions: Continue Atorvastatin Calcium [Lipitor 20MG Tablet] 20 mg PO HS Cyclobenzaprine HCl 10 mg [Cyclobenzaprine 10 MG] 10 mg PO TIDPRN PRN PRN Reason: Pain Instructions: Gastrointestinal Bleeding (DC) Additional Instructions: No NSAIDS and No Aspirin x [address] Gomez office with any concern. Follow up with: MIKE QUARLES [Primary Care Provider] - 01/14/24 9:00 am HEIDI GOMEZ [COURTESY STAFF] - 01/17/24 9:25 am ([facility])
[2024-01-10 17:20] VITALS: BP 132/82; PULSE 92; TEMP 98; O2SAT 95
--- NOTE | 2024-01-11 11:37 | HP ---
Patient seen for Sulaiman Scruggs MD, who apparently consulted over the weekend. HISTORY AND PHYSICAL HISTORY OF PRESENT ILLNESS: A 43-year-old gentleman who had some rectal bleeding, bright red blood, for 1 week, was worse Wednesday. Gentleman got admitted over the weekend. He has a prior history of some polyps in the past, has some intermittent rectal bleeding every 2 or 3 years. He has had colonoscopy by Dr. Borges in the past. He denies any NSAID or anticoagulant use currently. He did have some lower abdominal crampy aches when it was happening, says his bleeding has resolved now, and he denies any current abdominal pain. PAST MEDICAL HISTORY: He has had some hyperlipidemia, history of migraines in the past, had some gout in the past, spinal stenosis in the past. HOME MEDICATIONS: Atorvastatin, cyclobenzaprine. ALLERGIES: Tamiflu. PAST SURGICAL HISTORY: He has had right shoulder surgery in the past, had some left shoulder surgery in the past, had multiple colonoscopies in the past. SOCIAL HISTORY: History of smoking. No current alcohol abuse. FAMILY HISTORY: Colon cancer. He denies any family history of Crohn's or ulcerative colitis. REVIEW OF SYSTEMS: Twelve systems reviewed. Per my assessment, denies any abdominal pain. Denies any current rectal bleeding. He has had history of polyps in the past. Other systems negative or noncontributory as above and per preadmission questionnaire. Denied prior abdominal surgery. His hemoglobin was in the 13 to 14 range. PHYSICAL EXAMINATION: GENERAL: No acute distress. HEENT: Anicteric sclerae. NECK: No JVD. CHEST: Clear, nonlabored breathing. CARDIOVASCULAR: Regular rate and rhythm. ABDOMEN: Soft, nontender. No peritoneal signs. EXTREMITIES: No cyanosis. NEUROLOGIC: Alert and oriented, moving extremities symmetrically. PSYCHIATRIC: Appropriate mood and affect. ASSESSMENT: History of GI bleed, bright red rectal bleeding, needs colonoscopy. General risk of bleeding or infection, risk of bowel injury or perforation possibly requiring other procedures, risk of missed or nondiagnosis or incomplete exam possibly requiring other studies or procedures or referrals. General risk of anesthesia and sedation. Again, this patient was seen by Sulaiman Scruggs MD, who was consulted over the weekend and asked that I add this case on because I was doing some outpatient procedures here today. Will proceed with colonoscopy under IV sedation when OR time available. Possible internal hemorrhoid banding if source of his bleeding. Risk of bleeding of infection, risk of bowel injury or perforation, possibly requiring other procedures. If any hemorrhoid banding done, risk of progressive hemorrhoidal disease, risks of aches or pressure, more risk of major infection but not limited to. Will proceed with colonoscopy, possible internal hemorrhoid banding when OR time available.
--- NOTE | 2024-01-11 14:20 | OP ---
SURGERY DATE/TIME: 01/10/2024 2075 - 5124 PREOPERATIVE DIAGNOSES: 1) History of rectal bleeding. 2) History of internal and external hemorrhoids. 3) Prior history of polyps. POSTOPERATIVE DIAGNOSES: 1) Small polyps. 2) Few diverticula. 3) Internal and external hemorrhoids. 4) ASA class 2. PROCEDURE: 1) Colonoscopy to cecum. 2) Hot biopsy polypectomy, transverse colon polyps. 3) Hot biopsy polypectomy of rectal sigmoid/rectal polyp. 4) Internal hemorrhoid banding x3 columns. SURGEON: Horacio Gomez MD ANESTHESIA: MAC. INDICATIONS: As above. Consent obtained. DESCRIPTION OF PROCEDURE AND FINDINGS: Patient was taken to the endoscopy room. MAC anesthesia introduced. After official time out and no disagreement with planned procedure, digital rectal exam revealed the internal and external hemorrhoids. Video colonoscope inserted and passed up through the tortuous sigmoid, descending, transverse, ascending colon, around to the cecum. Appendiceal orifice was well visualized. The prep overall was fair. He had some liquidy, semi-soft stool throughout the colon on the exam. I did not get a picture of the more debris-laden parts of the colon somehow. I photo documented the appendiceal orifice and the bowel. The scope was carefully withdrawn over the next 10 minutes. Transverse colon, I removed a small polyp with hot biopsy polypectomy. Another 3 polyps were removed in the rectal sigmoid and upper rectum area with the hot biopsy polypectomy. Good hemostasis noted. He had a few scattered diverticula in the left colon. No signs of any fresh or old blood. On retroflexion, he did have the internal and external hemorrhoids, probably grade 2 to 3. He had kind of a pool of external hemorrhoids to, so he would benefit from a trial of banding as no other obvious source of any bleeding was noted at this time. Therefore, remainder of MAC anesthesia, he was re-dosed a little bit. Half turner retractor was then inserted and it was felt these hemorrhoids were large enough. Therefore, top edge of the hemorrhoid was banded with a suction blade groover. Good soft tissue noted in the left lateral position. This was repeated in the right posterior position and again in the right anterior hemorrhoidal column position, grabbing the top edge of the hemorrhoid and soft tissue in the band. Adequate hemostasis. I recommended he do more Sitz baths p.r.n. and titrate high-fiber diet or Metamucil or FiberCon, titrate to soft bulky stools. Was straining at time of bowel movements. We will see him back in the office in a week or 2. Again, this patient seen for Dr. Sulaiman Scruggs whose was consulted over the weekend.
== END 2024-01-10 17:00 | disposition home or self-care (01) ==
LOC: ED 22:34 → MED SURG 01-08 03:16
PROVIDERS: ADMIT Internal Medicine Critical Care Medicine; ATTEND Internal Medicine Critical Care Medicine
DX: K92.2 Gastrointestinal hemorrhage, unspecified (principal); R10.9 Unspecified abdominal pain; F17.200 Nicotine dependence, unspecified, uncomplicated; E66.9 Obesity, unspecified; E78.5 Hyperlipidemia, unspecified; K64.4 Residual hemorrhoidal skin tags; K64.8 Other hemorrhoids; Z79.899 Other long term (current) drug therapy; Z80.0 Family history of malignant neoplasm of digestive organs; Z09 Encounter for follow-up examination after completed treatment for conditions other than malignant neoplasm; Z86.010 Personal history of colon polyps; Z87.19 Personal history of other diseases of the digestive system
CPT/HCPCS: 36415; 74177; 80053; 82274; 83735; 85014; 85018; 85025; 85027; 85610; 85730; 86850; 86900; 86901; 93268; 96374; 99284; J2704; Q3014; A9270-GY; G0328; G0378

== ENCOUNTER 2024-07-02 13:02 | Emergency (ER) | payer BC ==
[2024-07-02 13:36] VITALS: TEMP 97.5
--- NOTE | 2024-07-02 14:06 | ERPHSYRPT ---
- History of Present Illness Time Seen by Provider: 07/02/24 13:56 Source: patient Exam Limitations: no limitations Patient Subjective Stated Complaint: Foot pain- left foot Triage Nursing Assessment: Patient ambulated back to ED and transferred self to bed. Patient A+O X 3. Patient's skin pink, warm and dry. Patient complains of left foot/leg pain. Patient stated he has no pain until ambulating. Patient reports pain to back of lower leg/foot since yesterday. Patient denies trauma or injury. Physician History: Pt states since yesterday morning he has had pain in the posterior aspect of his left lower leg and pain in the posterior aspect of his left foot upon weight bearing; unsure of any injury(may have kicked something in his sleep). Pt denies chest pain, shortness of air, nausea, abdominal pain and any Hx of DVT. Allergies/Adverse Reactions: oseltamivir [From Tamiflu] Adverse Reaction (Verified 07/02/24 13:19) Vomiting Home Medications: Atorvastatin Calcium [Lipitor 20MG Tablet] 20 mg PO HS 03/06/20 [History] Cyclobenzaprine HCl 10 mg [Cyclobenzaprine 10 MG] 10 mg PO TIDPRN PRN 01/07/24 [History] Hx Tetanus, Diphtheria Vaccination/Date Given: Yes Hx Influenza Vaccination/Date Given: No Hx Pneumococcal Vaccination/Date Given: No Immunizations Up to Date: Yes Travel Risk - International Travel Have you traveled outside of the country in past 3 weeks: No - Emerging Infectious Disease Are you exhibiting symptoms associated with any current EIDs: No - Review of Systems Respiratory: No Dyspnea Cardiac: No Chest Pain Abdominal/Gastrointestinal: No Abdominal Pain Musculoskeletal: Other (pain in left lower leg/foot since yesterday) - Past Medical History Pertinent Past Medical History: Yes Neurological History: Migraines, Other ENT History: No Pertinent History Cardiac History: High Cholesterol Respiratory History: Sleep Apnea Endocrine Medical History: No Pertinent History Musculoskeletal History: No Pertinent History GI Medical History: Colitis, GI Bleed, Hemorrhoids History: No Pertinent History Psycho-Social History: No Pertinent History Male Reproductive Disorders: No Pertinent History Other Medical History: "PAINLESS MIGRAINE", GOUT. insomnia. 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 mult colonoscopies Significant Family History: no pertinent family hx - Social History Smoking Status: Current every day smoker How long have you smoked: 32 Exposure to second hand smoke: Yes Drug Use: none Patient Lives Alone: No - Social Determinants of Health Will the patient participate in the screening: Yes Do you worry about a steady place to live?: No Do you have any problems with any of the following?: No known problems In the past 12 months,have you had to go without utilities?: No Transportation Issues: No Has anyone in your support network made you feel unsafe?: No Have you or anyone in your house had to go without enough: No - Nursing Vital Signs Nursing Vital Signs: Initial Vital Signs Temperature 97.5 F 07/02/24 13:19 Pulse Rate 90 07/02/24 13:19 Respiratory Rate 20 07/02/24 13:19 Blood Pressure 140/87 07/02/24 13:19 O2 Sat by Pulse Oximetry 96 07/02/24 13:19 Pain Scale Pain Intensity 0 - Physical Exam General Appearance: alert Eyes, Ears, Nose, Throat Exam: TMs normal, pharynx normal Neck Exam: normal inspection Cardiovascular/Respiratory Exam: normal breath sounds, heart sounds normal Hips Exam: bilateral: normal range of motion Legs Exam: bilateral leg: normal range of motion Knees Exam: bilateral knee: normal range of motion Ankle Exam: left ankle: limited range of motion (mild tenderness over achilles tendon) Foot Exam: bilateral foot: non-tender Neuro/Tendon Exam: normal sensation Mental Status Exam: alert, cooperative Skin Exam: warm, dry SpO2 Interpretation: normal SpO2: 96 O2 Delivery: Room Air - Course Nursing assessment & vital signs reviewed: Yes - Radiology Exams Left Lower Leg X-ray Interpretation: Teleradiologist Report (No evidence of acute fracture, dislocation. Achillis tendon enthesiopathy.) Left Foot X-ray Interpretation: Teleradiologist Report (No evidence of acute fracture, dislocation. Achillis tendon enthesiopathy.) Ordered Tests: Active Orders 24 hr Category Date Time Status FOOT (MINIMUM 3 VIEWS) Stat Exams 07/02/24 14:04 Completed LOWER LEG Stat Exams 07/02/24 14:04 Completed CBC W DIFF Stat Lab 07/02/24 14:20 Completed D-DIMER QUANTITATIVE Stat Lab 07/02/24 14:20 Completed Uric Acid Stat Lab 07/02/24 14:20 Completed Medication Summary Discontinued Medications Generic Name Dose Route Start Last Admin Trade Name Lexi PRN Reason Stop Dose Admin Ibuprofen 600 mg 07/02/24 14:06 07/02/24 14:13 Ibuprofen 600 Mg Tablet PO 07/02/24 14:07 600 mg STAT ONE Administration Ibuprofen Confirm 07/02/24 14:10 Ibuprofen 600 Mg Tablet Administered 07/02/24 14:11 Dose 600 mg .ROUTE .STK-MED ONE Lab/Rad Data: Laboratory Result Diagrams 07/02/24 14:20 Laboratory Results 07/02/24 07/02/24 07/02/24 Range/Units 14:20 14:20 14:20 WBC 10.4 H (4.23-9.07) x10^3/uL RBC 4.51 L (4.63-6.08) x10^6/uL Hgb 13.0 L (13.7-17.5) g/dL Hct 38.9 L (40.1-51.0) % MCV 86.3 (79.0-92.2) fL MCH 28.8 (25.7-32.2) pg MCHC 33.4 (32.3-36.5) g/dL RDW 13.7 (11.6-14.4) % Plt Count 290 (163-337) x10^3/uL MPV 8.9 L (9.4-12.4) fL Gran % 70.3 H (34.0-67.9) % Immature Gran % (Auto) 0.4 (0.001-0.429) % Nucleat RBC Rel Count 0.0 (0.00-0.2) % Eos # (Auto) 0.01 L (0.04-0.54) x10^3/uL Immature Gran # (Auto) 0.04 H (0.001-0.031) x10^3u/L Absolute Lymphs (auto) 2.28 (1.32-3.57) x10^3/uL Absolute Monos (auto) 0.69 (0.30-0.82) x10^3/uL Absolute Nucleated RBC 0.00 (0.00-0.012) x10^3u/L Lymphocytes % 22.0 (21.8-53.1) % Monocytes % 6.6 (5.3-12.2) % Eosinophils % 0.1 L (0.8-7.0) % Basophils % 0.6 (0.2-1.2) % Absolute Granulocytes 7.30 H (1.78-5.38) x10^3/uL Basophils # 0.06 (0.01-0.08) x10^3/uL D-Dimer 0.20 (0.0-0.50) mg/L Uric Acid 5.7 (3.5-7.2) mg/dL - Progress Progress: unchanged Counseled pt/family regarding: lab results, diagnosis, need for follow-up, rad results Medical Desision Making - Diagnostic Testing Diagnostic test were ordered, analyzed, and reviewed by me: Yes Radiological Interpretation: Teleradiologist Report - Departure Departure Disposition: Home Clinical Impression: Achilles tendon enthesiopathy Condition: Stable Critical Care Time: No Referrals: MIKE BORGES [Primary Care Provider] - Follow up/PCP as directed Instructions: Achilles Tendinopathy Exercises Additional Instructions: Elevate left foot 12 inches above heart level for the next [address] hours. Follow up with Dr. Borges tomorrow. Take ibuprofen as needed for pain. Forms: Work/School Release Form
[2024-07-02] MEDS ORDERED: MOTRIN 600 MG ONE (14:10)
[2024-07-02] MEDS: MOTRIN 600 MG PO ONE (14:13)
[2024-07-02 14:20] LABS: BASOPHIL % 0.6 % (0.2-1.2); Basophil (Absolute #) 0.06 x10^3/uL (0.01-0.08); Eosinophil % 0.1 % (0.8-7.0); Eosinophil (Absolute #) 0.01 x10^3/uL (0.04-0.54); Hematocrit 38.9 % (40.1-51.0); IMMATURE GRAN # 0.04 x10^3u/L (0.001-0.031); IMMATURE GRAN % 0.4 % (0.001-0.429); Lymphocyte (Absolute #) 2.28 x10^3/uL (1.32-3.57); Mean Cell Volume 86.3 fL (79.0-92.2); Mean Corpuscular Hemoglobin 28.8 pg (25.7-32.2); Mean Corpuscular Hgb Concent. 33.4 g/dL (32.3-36.5); Mean Platelet Volume 8.9 fL (9.4-12.4); Monocyte (Absolute #) 0.69 x10^3/uL (0.30-0.82); Monocytes % 6.6 % (5.3-12.2); Neutrophil % 70.3 % (34.0-67.9); Platelet Count 290 x10^3/uL (163-337); Red Blood Count 4.51 x10^6/uL (4.63-6.08); Red Cell Distribution Width 13.7 % (11.6-14.4); White Blood Count 10.4 x10^3/uL (4.23-9.07)
--- NOTE | 2024-07-02 16:42 | XRAY ---
CLINICAL HISTORY: pain COMPARISON: none TECHNIQUE: X-ray left tibia and fibula, 2 views: AP (Anteroposterior) and lateral projections. FINDINGS: Bone: The visualized tibia and fibula are intact. No evidence of fracture or dislocation. No focal bone lesions are identified. Soft Tissue: Achillis tendon enthesiopathy. IMPRESSION: 1. No evidence of acute fracture, dislocation 2. Achillis tendon enthesiopathy. Disclaimer: A subtle bone abnormality or fracture may not be readily apparent on X-rays, thus clinical correlation and further imaging including follow-up CT, MRI, or follow-up X-rays are advised as needed. Electronically Signed by: Enzo Viera MD. (07/02/2024 16:38:39 EST)
--- NOTE | 2024-07-02 16:45 | XRAY ---
CLINICAL HISTORY: pain upon walking COMPARISON: No prior studies are available for comparison. TECHNIQUE: X-ray images of the left foot were obtained in anteroposterior (AP), lateral, and oblique projections. FINDINGS: Bone Structure: Bone structure is normal and aligned. No evidence of fracture or dislocation. Bipartitle hallux sesamoid bone, otherwise, No osseous lesions or abnormalities identified. Joint Spaces: Joint spaces are normal. No evidence of joint effusion or subluxation. Soft Tissues: Achillis tendon enthesiopathy. Additional Findings: No signs of osteoarthritis, bone spurs, lytic or sclerotic lesions. IMPRESSION: 1. No evidence of acute fracture, dislocation 2. Achillis tendon enthesiopathy. Disclaimer: A subtle bone abnormality or fracture may not be readily apparent on X-rays, thus clinical correlation and further imaging including follow-up CT, MRI, or follow-up X-rays are advised as needed. Electronically Signed by: Enzo Viera MD. (07/02/2024 16:42:08 EST)
[2024-07-02 18:20] VITALS: BP 115/75; PULSE 80; RESP 16; O2SAT 96
== END 2024-07-02 18:26 | disposition home or self-care (01) ==
LOC: ED 13:02
DX: M76.62 Achilles tendinitis, left leg (principal); M79.672 Pain in left foot
CPT/HCPCS: 36415; 73590; 73630; 84550; 85025; 85379; 99283; 99284; A9270-GY

== ENCOUNTER 2024-12-01 06:16 | Day surgery (SDC) | payer BC ==
[2024-12-01] MEDS: CEFAZOLIN 2 GM/100 ML NaCl 2 GM/100 ML IVPB IV SCH (06:47)
[2024-12-01] MEDS: Lactated Ringers 1,000 ML IV SCH (06:47)
[2024-12-01] MEDS ORDERED: MARCAINE 0.25% PF/ EPI 1:200,000 ONE (06:51)
[2024-12-01 07:10] VITALS: RESP 16
[2024-12-01] MEDS: TYLENOL EXTRA STRENGTH 500 MG PO ONE (07:46)
[2024-12-01] MEDS: NEURONTIN PO ONE (07:46)
[2024-12-01] MEDS: Decadron 4 MG PO ONE (07:46)
[2024-12-01] MEDS: celeBREX 100 MG PO ONE (07:46)
[2024-12-01] MEDS ORDERED: propofoL IV ONE (08:32)
[2024-12-01] MEDS ORDERED: TORAdol 30 mg Injection ONE (08:33)
[2024-12-01] MEDS ORDERED: Xylocaine-Mpf 2% 5 Ml Vial ONE (08:33)
[2024-12-01] MEDS ORDERED: Zofran 4 MG/2 ML VIAL ONE (08:33)
[2024-12-01] MEDS ORDERED: Versed 2 MG/2 ML Injection ONE (08:36)
[2024-12-01] MEDS ORDERED: SUBLIMAZE 100 MCG/2 ML ONE (08:37)
[2024-12-01 11:20] VITALS: BP 119/69; PULSE 90; TEMP 97.7; O2SAT 95
--- NOTE | 2024-12-03 22:18 | OP ---
SURGERY DATE/TIME: 12/01/2024 [id number] PREOPERATIVE DIAGNOSIS: Right lateral epicondylitis. POSTOPERATIVE DIAGNOSIS: Right lateral epicondylitis. PROCEDURE: Right modified Nirschl procedure. SURGEON: Matteo Campos DO ANESTHESIA: General with a block. DESCRIPTION OF PROCEDURE AND FINDINGS: The patient was identified, and informed consent was obtained. The patient was taken to the operative suite and placed in the supine position on the operating table where the general anesthetic was administered after the block had been placed in the holding area. The tourniquet was placed high in the right upper extremity which was then prepped and draped in the usual sterile fashion. A standard time-out was taken. Following this, the arm was exsanguinated and tourniquet elevated to 250 mmHg. Area over the lateral portion of the elbow was marked from the capitellum to the radial head. The skin was incised for about 3 cm to 4 cm. Skin was incised. Dissection was carried out through the subcutaneous tissue. The fascia overlying the extensor carpi radialis longus was identified. It was incised. Dissection was then carried out as this was elevated anteriorly and posteriorly such that the common extensor was noted. Care was taken to avoid the lateral collateral ligament. The area of caseous tissue on the extensor carpi radialis brevis was then excised, and then the bony bed was roughened in the anterior quadrant, the safe zone, and a 3.0 SutureTak was placed. The tissue was repaired, first by doing inverted mattress sutures through the ECRL and through the common extensor, giving a [id number] type repair, which was then tightened. The suture was then placed through the shuttle suture and fully tightened. The wound was then closed with 2-0 Vicryl and 3-0 Stratafix augmented with Dermabond, Adaptics, 4 x 4's, and a sterile dressing applied. The patient was placed into a sling and transferred to the cart, taken to recovery room in satisfactory condition having tolerated the procedure well.
== END 2024-12-01 11:35 | disposition home or self-care (01) ==
LOC: SDC 06:16
PROVIDERS: ATTEND Orthopaedic Surgery
DX: M77.11 Lateral epicondylitis, right elbow (principal); M25.521 Pain in right elbow
CPT/HCPCS: 24359; 76937; J0690; J1885; J2250; J2405; J2704; J3010; A9270-GY